=== PATIENT | female | born 1945 | race Caucasian/White ===

== ENCOUNTER 2024-10-02 13:18 | Outpatient (AMB) | payer MEDICARE, SELFPAY ==
--- OUTSIDE RECORDS SUMMARY | 2024-10-02 13:26 | XMS_ITS | Clinical Summary ---
Author Organization [facility] Address [address] [place] [address] Care Team Providers Care Administrative Nursing Supervisor Name Role Phone None, Provider Primary Care Provider Unavailabl e Allergies Active Allergy Reactions Criticality Noted Date Comments Guaifenesin 11/30/2016 Sertraline Diarrhea 11/30/2016 Sulfa (Sulfonamide Antibiotics) 11/11 Medications aspirin chewable 81 mg tablet Take 81 mg by mouth daily. Active betamethasone dipropionate (DIPROLENE) 0.05 % cream Apply topically 2 times daily. Active buPROPion (WELLBUTRIN) 75 mg tablet Take 75 mg by mouth 2 times daily. Active chlorthalidone (HYGROTON) 25 mg tablet Take 25 mg by mouth daily. Active lisinopril (PRINIVIL, ZESTRIL) 40 mg tablet Take 40 mg by mouth daily. Active lovastatin (MEVACOR) 20 mg tablet Take 40 mg by mouth at bedtime. Active Surgical History Surgery Date Site/Laterality Comments BREAST BIOPSY Left Benign Medical History Medical History Date Comments Hypertension Psychiatric problem Major depres sive disorder Hyperlipidemia 11/01/2006 Diverticulitis Cataract Allergic rhinitis Rotator cuff disorder Family History Medical History Relation Comments Stroke Father Heart Attack Mother Heart Attack Paternal Grandfather Relation Status Comments Father Mother Paternal Grandfather Social History Tobacco Use Types Packs/Day Years Used Date Smoking Tobacco: Former Cigarettes Q uit: 1982 Smokeless Tobacco: Never Alcohol Use Standard Drinks/Week Comments Yes 3 (1 standard drink = 0.6 oz pur e alcohol) Interpersonal Safety Answer Date Record ed Physically Hurt Never 10/13/2019 Verbally Threaten Not on file 10/13/2019 Comments Unknown Sex and Gender Information Value Date Recorded Sex Assigned at Not on file Legal Sex Female 8:47 EDT Gender Identity Not on file Sexual Orientation Not on file Obstetrics History Last Filed Vital Signs Vital Sign Reading Time Taken Comments Blood Pressure 118/62 11/30/2016 0907 EDT Pulse 76 11/30/2016 0907 EDT Temperature 36.8 C (98.2 F) 11/30/2016 1005 EDT Respiratory Rate 18 11/30/2016 0907 EDT Oxygen Saturation - - Inhaled Oxygen Concentration - - Weight - - Height - - Body Mass Index - - Plan of Treatment Health Maintenance Due Date Last Done Comments Fall Risk Screening 12/06/2008 RSV Immunization ( o r 60+ Years) (1 - 1-dose 75+ series) 12/06/2018 COVID-19 Vaccine (2023- season) 2023 Care Teams Administrative Nursing Supervisor Relationship Specialty Start Date End Date None, Provider PCP - General 11/30/16
--- OUTSIDE RECORDS SUMMARY | 2024-10-02 13:26 | XMS_ITS | Encounter Summary ---
Author Organization [facility] Address [address] [facility] [address] [place] [address] Phone Care Team Providers Care Basketball Scout Name Role Phone Adenike Lainez NP Primary Care Provider Farrah Hemphill NOTE TAKER Unavailable + Encounter Details Date Type Department Care Team (Late st Contact Info) Description 09/23/2018 Procedure Pass OR Admitting Dept - [facility] Department [address] [place] [address] Social History Tobacco Use Types Packs/Day Years Used Date Smoking Tobacco: Former Cigarettes Q uit: 1983 Smokeless Tobacco: Never Alcohol Use Standard Drinks/Week Comments Yes 0 (1 standard drink = 0.6 oz pur e alcohol) Comments Unknown Sex and Gender Information Value Date Recorded Sex Assigned at Female 06/23/2020 9:19 AM EDT Legal Sex Female 10:09 PM EDT Gender Identity Female 06/23/2020 9:19 AM EDT Sexual Orientation Not on file documented as of this encounter Plan of Treatment Upcoming Encounters Date Type Department Care Team (Late st Contact Info) Description 12/08/2024 11:00 AM EDT Appointment [facility] [address] [place] [address] Farrah Hemphill, LORE [address] [place], [place] [phone] documented as of this encounter Visit Diagnoses Not on filedocumented in this encounter Care Teams Basketball Scout Relationship Specialty Start Date End Date Adenike Lainez NP [address] [place] [address] [email or web address] PCP - General Family Medicine 03/29/18 Farrah Hemphill CNP [address] [place] [address] Nurse Practitioner 07/14/24 documented as of this encounter Additional Source Comments The information contained in this document represents components of the legal health record. It is not the complete legal health record.[facility]
--- OUTSIDE RECORDS SUMMARY | 2024-10-02 13:26 | XMS_ITS | Encounter Summary ---
Author Organization [employer] Address [address] [place] [address] 7 [place] [address] Care Team Providers Care Ross Carrier Driver Name Role Phone Brandie Hicks PA-C Primary Care Provider Farrah Ryan BUSINESS SUPERVISOR Primary Care Provider [phone] Reason for Visit * Reason Onset Date Comments New PCP 09/04/2023 Encounter Details Date Type Department Care Team (Late st Contact Info) Description 09/04/[address] [address] Brandie Hicks PA-C New PCP Social History Tobacco Use Types Packs/Day Years Used Date Smoking Tobacco: Former Cigarettes Smokeless Tobacco: Never Alcohol Use Standard Drinks/Week Comments Yes 0 (1 standard drink = 0.6 oz pure alcohol) 2 glasses of wine a week, 1 glass of licquor a week Depression Answer Date Recorded Patient Health Questionnaire-9 Score 1 07/03/2022 Housing Stability Answer Date Recorded What is your housing situation today? I have francis garsia 08/02/[address] you li ve. Do you have problems with any of the following? None of the above 08/02/2023 Food Insecurity Answer Date Recorded Within the past 12 months, y ou worried that your food would run out before you got money to buy more: Never True 08/02/2023 Within the past 12 months,th e food you bought just didn't last and you didn't have enough money to get more: Never True Transportation Answer Date Recorded In the past 12 months, has l ack of transportation kept you from medical appts, meetings, work or from getting things needed for daily living? No 08/02/2023 Utilities Answer Date Recorded In the past 12 months, has t he electric, gas, oil or water company threatened to shut off services in your home? No 08/02/2023 Depression Answer Date Recorded Patient Health Questionnaire-2 Score 0 08/02/2023 Comments Unknown Sex and Gender Information Value Date Recorded Sex Assigned at Female 04/06/2022 11:42 AM EST Legal Sex Female 5:35 PM EDT Gender Identity Female 04/06/2022 11:42 AM EST Sexual Orientation Choose not to disclose 2022 11:42 AM EST documented as of this encounter Miscellaneous Notes * Telephone Encounter - Nayla Quijano - 09/04/2023 2:55 PM EDT I believe Dr. Harman will be seeing patients at [facility] and may be a better fit as MEGGAN is only there one day a week. * Telephone Encounter - Mariam Santos - 09/04/2023 1:59 PM EDT Patient LMOM on 08/30/2023 asking to speak to someone about changing PCP due to current PCP leavingin a few months. Patient has requested a MD and not a ACETONE BUTTON PASTER for a new PCP, as of right now only Kerry Bneson seems mike taking in new patients as an MD. Would this patient be a good fit or should we recommend another PCP? documented in this encounter Plan of Treatment Not on file documented as of this encounter Visit Diagnoses Not on filedocumented in this encounter Additional Health Concerns Assessment Noted Time PHQ-9 Depression Total Score: 1 07/04/19 12:08 PM EDT documented as of this encounter Care Teams Ross Carrier Driver Relationship Specialty Start Date End Date Brandie Hicks PA-C PCP - General Family Medicine 06/12/22 06/03/24 Farrah Hemphill FNP [address] [place] [address] PCP - General Family Medicine 06/04/24 documented as of this encounter
--- NOTE | 2024-10-02 13:29 | A.OFFVIS_ITS ---
Vital Signs 10/02/24 13:30 Height 5 ft 5.5 in Weight 127 lb BMI 20.8 Intake Visit Reasons: WEB PRODUCTION ASSISTANT/PCP referral for claudication Intake Note: WEB PRODUCTION ASSISTANT/ PCP referral for PAD w/ bilateral LE cramps w/ ambulation of any distance x 6+ months Business Services Clerk Required: No Accompanied by: Self / Same As Patient Allergies mussels Allergy (Severe, Verified 10/02/24 13:36) Gastrointestinal Upset Sulfa (Sulfonamide Antibiotics) Allergy (Intermediate, Verified 10/02/24 13:36) Hives guaifenesin (From Mucinex) Adverse Reaction (Mild, Verified 10/02/24 13:36) Dizziness avacodo Allergy (Severe, Uncoded 10/02/24 13:36) Gastrointestinal Upset salmon Allergy (Severe, Uncoded 10/02/24 13:36) Gastrointestinal Upset trout Allergy (Severe, Uncoded 10/02/24 13:36) Gastrointestinal Upset HPI HPI WEB PRODUCTION ASSISTANT/PCP referral for claudication: Details: Very pleasant 78-year-old female was referred to us for evaluation regarding peripheral vascular disease. This all began as a workup by her insurance company. She had an outpatient mobile scan which was concerning for moderate vascular disease. Unfortunately I was unable to get a copy of that report but was subsequently referred for vascular evaluation. Upon discussion with her she quit smoking nearly 45 years ago and prior to that she was smoking a proximally a pack a day. She is a nondiabetic. Interestingly of note she is on 3 blood pressure medications and appears to be reasonably controlled at the current time. She also had undergone MRCP for what appears to be a gallbladder polyp. Upon discussion with her she reports that she is able to easily walk a mi. she has occasional cramps which is not specifically related to her ambulation status. It often occurs at night while at rest as well. She now presents to us for vascular evaluation. Review of Systems Const All systems reviewed & are unremarkable except as noted in HPI and below Reports no additional complaints ENT Reports Normal hearing present Card Denies chest pain, Denies chest pain at rest, Denies chest pain with activity and Denies pedal edema Resp Denies cough GI Denies abdominal pain Musc Denies abnormal gait, Denies muscle cramps and Denies radiating pain into limb Skin/Breast Denies skin ulcer and Denies wounds Neuro Reports Normal hearing present and Denies abnormal gait Psych Reports no additional complaints Physical Exam Vital Signs: BMI result Body Mass Index 20.8 Const General: cooperative, healthy appearing and comfortable Orientation/consciousness: oriented to person, oriented to place and oriented to time HEENT Head: Yes normal to inspection Neck Neck: Yes normal visual inspection Carotids: no bruits Chest Chest palpation & inspection: normal inspection of the chest Resp Effort & Inspection: normal respiratory effort and able to speak in complete sentences Auscultation: clear to auscultation bilaterally, no crackles, no rales, no rhonchi and no wheezes Cardio Other: Left side palpable dorsalis pedis pulse Rate: regular rate Rhythm: regular rhythm Heart sounds: S1 normal heart sound present and S2 normal heart sound present Bruits: no carotid bruits Peripheral pulses: Peripheral pulses 2+ throughout GI Inspection: Yes normal to inspection Skin Wounds: no wounds Hair: normal Neuro General: oriented to person, oriented to place and oriented to time Cranial nerves: Yes CN's II-XII intact bilaterally and Yes Normal hearing present Cognition (Neuro): normal cognition Motor exam (neuro): 5/5 motor strength present throughout Extrem Other: venous exam: No significant superficial varicosities or spider telangiectasias, minimal edema General: No clubbing, No cyanosis and No edema Psych Appearance: grossly normal Mental Status: mental status grossly normal Speech and movement: Normal speech and movement present Assessment & Plan Assessment & Plan (1) PAD (peripheral artery disease): Code(s): I73.9 - Peripheral vascular disease, unspecified Category: Medical Plan: In short patient has an element of PA D. She is a stable claudication who can easily ambulate a mi. I did review the pathophysiology of peripheral vascular disease with the patient. In addition we did discuss routine conservative measures including a healthy diet and the importance of exercise and ambulation. We did discuss risk factor modification. I did discuss with her the importance of getting a baseline study. I do not think at the current time any intervention would be indicated. The patient will follow up with us after noninvasive testing. Thank you for allowing us to participate in this patient's care. If there are any questions or concerns please do not hesitate to contact us. (2) Renal artery stenosis: Code(s): I70.1 - Atherosclerosis of renal artery Category: Medical Plan: Of concern is the patient is on 3 antihypertensive medications. Due to her history of atherosclerotic disease I have also taken the liberty of ordering a renal artery ultrasound. We will obtain both results prior to her follow-up with us. Thank you once again for allowing us to assist in her care. If there are any questions or concerns please do not hesitate to contact us. Plan The patient had an opportunity to ask questions regarding the treatment plan. All questions were answered. Imaging studies, laboratory studies and physical exam results were discussed and reviewed in detail. No major barriers to understanding were identified. The patient expressed understanding and agreement with the above treatment plan. The patient is aware they should contact our office by phone for worsening of the current condition or the appearance of new symptoms. Thank you for allowing me to participate in the vascular care of this patient. If you have any questions or concerns regarding the treatment for the above condition please do not hesitate to contact me. The office telephone contact is [phone]. This note is constructed using voice recognition software. While every effort has been made to ensure accuracy, tack driller errors may have been included. Thank you for allowing me to participate in the care of your patient. Yours sincerely, Lewis Mathias MD, FACS, R.P.V.I. Orders: Orders US arterial duplex LE BI Today I73.9 - Peripheral vascular disease, unspecified US renal doppler Today I73.9 - Peripheral vascular disease, unspecified Coding Level of Care Code New Pt Level 4 (98003) Complex EM visit Add On G2211 Diagnoses PAD (peripheral artery disease) I73.9 Renal artery stenosis I70.1
[2024-10-02 13:30] VITALS: BMI 20.8
== END 2024-10-02 13:57 | disposition home or self-care (01) ==
LOC: HO.HVS 13:18
PROVIDERS: PCP Nurse Practitioner Family; Visit Provider Surgery Vascular Surgery
DX: I73.9 Peripheral vascular disease, unspecified (principal); I70.1 Atherosclerosis of renal artery
CPT/HCPCS: 99204; G2211

== ENCOUNTER → 2024-10-02 13:18 | Outpatient (BNVA) | payer MEDICARE, SELFPAY | PROVIDERS: PCP Nurse Practitioner Family; Visit Provider Surgery Vascular Surgery | DX: I70.1 Atherosclerosis of renal artery (principal); I73.9 Peripheral vascular disease, unspecified | CPT/HCPCS: 99202 ==

== ENCOUNTER 2024-12-30 08:20 | Outpatient (REF) | payer MEDICARE, SELFPAY ==
--- NOTE | ~2024-12-30 | US_ITS ---
EXAMINATION: US NONINVASIVE ASSESSMENT OF THE bilateral LOWER EXTREMITY WITH ARTERIAL DUPLEX AND ANKLE BRACHIAL INDICES (ABIS) CLINICAL INFORMATION: Peripheral vascular disease COMPARISON: None available. TECHNIQUE: Duplex Doppler techniques with waveform analysis and measurement of velocities in the common femoral, profunda femoris, superficial femoral, popliteal and tibial arteries were performed. In addition, ankle pulse volume recordings, ankle pressure measurements and ankle brachial indices were obtained of the bilateral lower extremity arterial system. The study was performed only at rest. FINDINGS: NONINVASIVE ASSESSMENT OF THE ARTERIES OF BILATERAL LOWER EXTREMITIES WITH ABIs: RIGHT LEG: Ankle-brachial index: 0.89 Ankle PVR: Slightly dampened LEFT LEG: Ankle-brachial index: 1.05 Left ankle PVR: Normal THANIA Reference: 0.9 - 1.4 = normal - no significant arterial disease 0.7 - 0.89 = mild peripheral arterial disease 0.51 - 0.69 = moderate peripheral arterial disease 0.50 = severe peripheral arterial disease RIGHT LOWER EXTREMITY DUPLEX ULTRASOUND: Common femoral artery: 92 cm/s. Diastolic flow reversal: Biphasic Profunda femoris artery: 73 cm/s. Diastolic flow reversal: Biphasic Superficial femoral artery (proximal): 83 cm/s. Diastolic flow reversal: Biphasic Superficial femoral artery (mid): 104 cm/s. Diastolic flow reversal: Biphasic Superficial femoral artery (distal): 93 cm/s. 1.5 cm segment with acoustic shadowing and borderline velocity change. Diastolic flow reversal: Biphasic Popliteal artery: 49 cm/s. 1.5 cm segment with acoustic shadowing. Diastolic flow reversal: Biphasic Posterior tibial artery: Occluded proximally. Diastolic flow reversal: Monophasic flow distally. Patent tibioperoneal trunk, peroneal and anterior tibial arteries are patent dorsalis pedis artery in the foot. Biphasic flow. . LOWER EXTREMITY DUPLEX ULTRASOUND: Common femoral artery: 117 cm/s. Diastolic flow reversal: Biphasic Profunda femoris artery: 120 cm/s. Diastolic flow reversal: Biphasic Superficial femoral artery (proximal): 129 cm/s. Diastolic flow reversal: Biphasic Superficial femoral artery (mid): 178 cm/s. 2 cm segment with acoustic shadowing. Diastolic flow reversal: Biphasic Superficial femoral artery (distal): 125 cm/s. 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 The left anterior tibial and peroneal arteries and dorsalis pedis artery appear patent with biphasic flow . US/US arterial duplex BI w/ THANIA IMPRESSION: Right: Mild atherosclerotic disease. 1.5 cm segment with acoustic shadowing in the mid right superficial femoral and popliteal arteries. The right proximal posterior tibial artery may be occluded. The right THANIA is 0.89. Left: Mild atherosclerotic disease. 2 cm segment with acoustic shadowing in the left mid SFA. Diseased proximal posterior tibial artery. The left THANIA is 1.05 Electronically signed by: Yeimy Romano MD 12/30/2024 12:06 PM EDT
--- NOTE | ~2024-12-30 | US_ITS ---
EXAMINATION: US RETROPERITONEAL LIMITED (RENAL ONLY) ULTRASOUND RENAL DOPPLER. CLINICAL INFORMATION: I 73.9. Peripheral vascular disease. Hypertension.. COMPARISON: None available. TECHNIQUE: Real-time ultrasound kidneys using grayscale and color Doppler technique. Spectral Doppler analysis of the main renal arteries, the abdominal aorta at the origin of the main renal arteries and segmental resistive indicis of the kidneys and the upper, mid and lower poles. FINDINGS: RIGHT KIDNEY: 9 x 5 x 5 cm (SAG x AP x TRV). Volume: 117 cc. Normal echotexture. Normal renal cortical thickness. No hydronephrosis. There are multiple, well-defined, exophytic anechoic lesions throughout the renal parenchyma, the largest measures 1.4 cm. LEFT KIDNEY: 11 x 5 x 6 cm (SAG x AP x TRV). Volume: 201 cc. Normal echotexture. Renal cortical thickness is normal. No hydronephrosis. There are multiple, well-defined, anechoic lesions with different sizes, the largest measures 5.5 cm in the midportion and upper pole junction. SPECTRAL DOPPLER ANALYSIS: Right Kidney: -Peak systolic velocity in the proximal right renal artery = 116 cm/s. Normal waveforms. -Peak systolic velocity in the mid right renal artery = 118 cm/s. Normal waveforms. -Peak systolic velocity in the distal right renal artery = 120 cm/s. Normal waveforms. -Patent right renal vein.. -Upper pole interlobar artery resistive index of 0.84. -Midpole interlobar artery resistive index of 0.79. -Lower pole interlobar artery resistive index of 0.77. RAR right = 1.2 Left Kidney: -Peak systolic velocity in the proximal left renal artery = 132 cm/s. Normal waveforms. -Peak systolic velocity in the mid left renal artery = 173 cm/s. Normal waveforms. -Peak systolic velocity in the distal left renal artery = 88 cm/s. Normal waveforms. -Patent left renal vein. -Upper pole interlobar artery resistive index of 1.0. -Mid pole interlobar artery resistive index of 0.72. -lower pole interlobar artery resistive index of 0.77. RAR left = 1.7 Aorta: -Peak systolic velocity = 100 cm/s. US/US renal doppler IMPRESSION: Bilateral renal cysts. No hydronephrosis in either kidney. No hemodynamically significant stenosis by ultrasound criteria at either main renal artery. Elevated/abnormal resistive indicis, both kidneys suggesting medical renal disease.. Electronically signed by: Balta Romero MD 12/30/2024 11:14 AM EDT RP
--- OUTSIDE RECORDS SUMMARY | 2024-12-30 08:28 | XMS_ITS | Encounter Summary ---
Author Organization [facility] Address [address] [facility] [address] [place] [address] Phone Care Team Providers Care Lead Consultant Name Role Phone Adenike Lainez NP Primary Care Provider Farrah Hemphill NARCOTICS AND/OR VICE DETECTIVE Unavailable + Farrah Hemphill CNP Primary Care Prov ider Encounter Details Date Type Department Care Team (Late st Contact Info) Description 05/06/2018 Ancillary Orders [facility] Orthopedics & Sports Medicine [address] [place] [address] Marcella Womack MD [address] [place] [address] Orthopedics & Sports Medicine, [facility] [place], [place] [phone] [email or web address] Social History Tobacco Use Types Packs/Day Years [...] Care Team (Late st Contact Info) Description 01/16/2025 10:00 AM EST Office Visit [facility] [address] [place], [place] [phone] Marcella Womack MD [address] [facility] [place], [place] [phone] [email or web address] documented as of this encounter Visit Diagnoses Not on filedocumented in this encounter Care Teams Lead Consultant Relationship Specialty Start Date End Date Adenike Lainez NP [address] [place] [address] [email or web address] PCP - General Family Medicine 03/29/18 10/26/24 Farrah Hemphill CNP [address] [place] [address] PCP - General Nurse Practitioner 10/27/24 Farrah Hemphill CNP [address] [place] [address] Nurse Practitioner 07/14/24 documented as of this encounter Additional Source Comments The information contained in this document represents components of the legal health record. It is not the complete legal health record.[facility]
--- OUTSIDE RECORDS SUMMARY | 2024-12-30 08:28 | XMS_ITS | Encounter Summary ---
Author Organization [employer] Address [address] [place] [address] 7 [place] [address] Care Team Providers Care Laborer Shipyard Name Role Phone Brandie Hicks PA-C Primary Care Provider Farrah Ryan Primary Care Provider [phone] Encounter Details Date Type Department Care Team (Latest Contact Info) Description 01/06/2020 Abstract [facility]VERSION[facility] Dental, Provider, DDS Social History Tobacco Use Types Packs/Day Years Used Date Smoking Tobacco: Never Assessed Comments Unknown Sex and Gender Information Value Date Recorded Sex Assigned at Female 04/06/2022 11:42 AM EST Legal Sex Female 5:35 PM EDT Gender Identity Female 04/06/2022 11:42 AM EST Sexual Orientation Choose not to disclose 2022 11:42 AM EST documented as of this encounter Plan of Treatment Not on file documented as of this encounter Visit Diagnoses Not on filedocumented in this encounter Care Teams Laborer Shipyard Relationship Specialty Start Date End Date Brandie Hicks PA-C PCP - General Family Medicine 06/12/22 06/03/24 Farrah Hemphill FNP [address] [place] [address] PCP - General Family Medicine 06/04/24 documented as of this encounter
--- OUTSIDE RECORDS SUMMARY | 2024-12-30 08:28 | XMS_ITS | Encounter Summary ---
Author Organization [employer] Address [address] [place] [address] 7 [place] [address] Care Team Providers Care Housing Installer Name Role Phone Brandie Hicks PA-C Primary Care Provider Farrah Ryan Primary Care Provider [phone] Encounter Details Date Type Department Care Team (Latest Contact Info) Description 02/18/2019 Abstract [facility] CONVERSION[facility] Dental, Provider, DDS Social [...] on filedocumented in this encounter Care Teams Housing Installer Relationship Specialty Start Date End Date Brandie Hicks PA-C PCP - General Family Medicine 06/12/22 06/03/24 Farrah Hemphill FNP [address] [place] [address] PCP - General Family Medicine 06/04/24 documented as of this encounter
--- OUTSIDE RECORDS SUMMARY | 2024-12-30 08:28 | XMS_ITS | Encounter Summary ---
Author Organization [facility] Address [address] [facility] [address] [place] [address] Phone Care Team Providers Care Agricultural Extension Agent Name Role Phone Adenike Lainze NP Primary Care Provider Farrah Hemphill COSTING ANALYST Unavailable + Farrah Hemphill CNP Primary Care Prov ider Encounter Details Date Type Department Care Team (Late st Contact Info) Description 09/23/2018 Procedure Pass OR Admitting Dept - Virtual Department [address] [place] [address] Social History Tobacco Use Types Packs/Day Years [...] Description 01/16/2025 10:00 AM EST Office Visit [facility] Orthopedics & Sports Medicine [address] [place] [address] Marcella Goldsmith MD [address] [place] [address] [facility] [place] [address] [email or web address] documented as of this encounter Visit Diagnoses Not on filedocumented in this encounter Care Teams Agricultural Extension Agent Relationship Specialty Start Date End Date Adenike Lainez NP [address] [place] [address] [email or web address] PCP - General Family Medicine 03/29/18 10/26/24 Farrah Hemphill CNP [address] [place] [address] PCP - General Nurse Practitioner 10/27/24 Farrah Hemphill CNP [address] [place] [address] Nurse Practitioner 07/14/24 documented as of this encounter Additional Source Comments The information contained in this document represents components of the legal health record. It is not the complete legal health record.[facility]
--- OUTSIDE RECORDS SUMMARY | 2024-12-30 08:28 | XMS_ITS | Encounter Summary ---
Author Organization [facility] Address [address] [facility] [address] [place] [address] Phone Care Team Providers Care Color Matcher Name Role Phone Adenike Lainez NP Primary Care Provider Farrah Hemphill REEFER ENGINEER Unavailable + Farrah Hemphill REEFER ENGINEER Primary Care Prov ider Encounter Details Date Type Department Care Team (Late st Contact Info) Description 07/21/2024 Procedure Pass [facility], [address] [address] Social History Tobacco Use Types Packs/Day Years Used Date Smoking Tobacco: Former Cigarettes Q uit: 1983 Smokeless Tobacco: Never Alcohol Use Standard Drinks/Week Comments Yes 0 (1 standard drink = 0.6 oz pur e alcohol) 2 glasses of wine per week Education Answer Date Recorded Are you interested in more education? Not on alejandro e 07/07/2022 Are you concerned about learning? Not on file 07/07/2022 No 07/07/2022 No 07/07/2022 Digital Access Answer Date Recorded No 08/05/2022 No 08/05/2022 Reliable internet access at home? Not on file 08/05/2022 Device with a working camera? Not on file Intimate Partner Violence Answer Date R ecorded Are you denied basic needs s uch as food, clothing, or medical care? No 07/14/2022 In the past 12 months have y ou been in a relationship with a person who hurts, threatens, or tries to control you? No 07/14/2022 Are you denied basic needs s uch as food, clothing, or medical care? No 07/14/2022 In the past 12 months have y ou been in a relationship with a person who hurts, threatens, or tries to control you? No 07/14/2022 Comments No Sex and Gender Information Value Date Recorded Sex Assigned at Female 06/23/2020 9:19 AM EDT Legal Sex Female 10:09 PM EDT Gender Identity Female 06/23/2020 9:19 AM EDT Sexual Orientation Not on file documented as of this encounter Plan of Treatment Upcoming Encounters Date Type Department Care Team (Late st Contact Info) Description 01/16/2025 10:00 AM EST Office Visit [facility] Orthopedics & Sports Medicine [address] [place] [address] Marcella Womack MD [address] [place] [address] Orthopedics & Sports Medicine, [facility] [place] [address] [email or web address] documented as of this encounter Visit Diagnoses Not on filedocumented in this encounter Care Teams Color Matcher Relationship Specialty Start Date End Date Adenike Lainez NP [address] [place] [address] [email or web address] PCP - General Family Medicine 03/29/18 10/26/24 Farrah Hemphill CNP [address] [place] [address] PCP - General Nurse Practitioner 10/27/24 Farrah Hemphill CNP [address] [place] [address] Nurse Practitioner 07/14/24 documented as of this encounter Additional Source Comments The information contained in this document represents components of the legal health record. It is not the complete legal health record.[facility]
--- OUTSIDE RECORDS SUMMARY | 2024-12-30 08:28 | XMS_ITS | Encounter Summary ---
Author Organization [employer] Address [address] [place] [address] 7 [place] [address] Care Team Providers Care Elementary School Social Worker Name Role Phone Brandie Hicks PA-C Primary Care Provider Farrah Ryan Primary Care Provider [phone] Encounter Details Date Type Department Care Team (Latest Contact Info) Description 08/22/2018 Abstract [facility] CONVERSIONS Dental, Provider, DDS Social [...] on filedocumented in this encounter Care Teams Elementary School Social Worker Relationship Specialty Start Date End Date Brandie Hicks PA-C PCP - General Family Medicine 06/12/22 06/03/24 Farrah Hemphill FNP [address] [place] [address] PCP - General Family Medicine 06/04/24 documented as of this encounter
--- OUTSIDE RECORDS SUMMARY | 2024-12-30 08:28 | XMS_ITS | Encounter Summary ---
Author Organization [facility] Address [address] [facility] [address] [place] [address] Phone Care Team Providers Care Sustainment Logistics Analyst Name Role Phone Adenike Lainez NP Primary Care Provider Farrah Hemphill CIGAR MAKING SUPERVISOR Unavailable + Farrah Hemphill CNP Primary Care Prov ider Encounter Details Date Type Department Care Team (Latest Contact Info) Description 09/05/2024 Transcribe Orders Virtual Department [address] [place] [address] Farrah Hemphill CNP [address] [place], [place] [phone] Complex renal cyst (Primary Dx) Social History Tobacco Use Types Packs/Day Years [...] Description 01/16/2025 10:00 AM EST Office Visit [facility] Orthopedics & Sports Medicine [address] [place] [phone] Marcella Womack MD [address] [place] [address] Orthopedics & Sports Medicine, [place] [address] [email or web address] documented as of this encounter Results * US Kidneys (12/08/2024 12:06 PM EDT) Anatomical Region Laterality Modality Abdomen, Kidney Ultrasound 12/08/2024 12:1 3 PM EDT Impressions 12/08/2024 12:24 PM EDT 1. No hydronephrosis. 2. Bilateral renal cysts. 3. Other hypoechoic renal lesions bilaterally are too small to characterize, but are similar to prior study Narrative 12/08/2024 12:24 PM EDT US KIDNEYS Referring clinician's provided indication for this examination in Epic: Outside Radiology Order; complex renal cyst TECHNIQUE: Kidney Ultrasound. COMPARISON: Prior studies including MRI 07/29/2024 and prior renal ultrasound 07/01/2024 FINDINGS: Right Kidney: Size: 9.5 cm No hydronephrosis. Right mid kidney renal cyst (anechoic with increased through transmission) measures 1.5 cm. Other hypoechoic renal lesions throughout the right kidney are below 1 cm in size and are too small to accurately characterize. Left Kidney: Size: 10.2 cm No hydronephrosis. Upper pole simple cyst (anechoic, increased through transmission) measures 5.5 cm. Other subcentimeter hypoechoic renal lesions are too small to characterize. Bladder: Underdistended and therefore not well evaluated. Procedure Note Bijan Horvath MD - 12/08/2024 US KIDNEYS Referring clinician's provided indication for this examination in Epic:Outside Radiology Order; complex renal cyst TECHNIQUE: Kidney Ultrasound. COMPARISON: Prior studies including MRI 07/29/2024 and prior renalultrasound 07/01/2024 FINDINGS: Right Kidney: Size: 9.5 cm No hydronephrosis. Right mid kidney renal cyst (anechoic with increased through transmission)measures 1.5 cm. Other hypoechoic renal lesions throughout the right kidney are below 1 cmin size and are too small to accurately characterize. Left Kidney: Size: 10.2 cm No hydronephrosis. Upper pole simple cyst (anechoic, increased through transmission) measures5.5 cm. Other subcentimeter hypoechoic renal lesions are too small tocharacterize. Bladder: Underdistended and therefore not well evaluated. IMPRESSION: 1. No hydronephrosis. 2. Bilateral renal cysts. 3. 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 It is not the complete legal health record.[facility]
--- OUTSIDE RECORDS SUMMARY | 2024-12-30 08:28 | XMS_ITS | Encounter Summary ---
Author Organization [facility] Address [address] [employer] [facility] [address] [place] [phone] Phone Care Team Providers Care Tooling Supervisor Name Role Phone Adenike Lainez NP Primary Care Provider Farrah Hemphill APPARATUS LINEMAN Unavailable + Farrah Hemphill CNP Primary Care Prov ider Encounter Details Date Type Department Care Team (Latest Contact Info) Description 05/06/2018 Ancillary Orders [address] [phone] Marcella Womack MD [address] [place] [address] Orthopedics & Sports Medicine, [place], [place] [phone] [email or web address] Osteoarthritis of left hip, unspecified osteoarthritis type Social History Tobacco Use Types Packs/Day Years [...] Description 01/16/2025 10:00 AM EST Office Visit [facility] Orthopedics & Sports Medicine [address] [place] [address] Marcella Womack MD [address] [place] [address] Orthopedics & Sports Medicine, [place] [address] Pending Results Name Type Priority Associated Diagnoses Date /Time FL Guidance Needle Placement Non-Spine Imaging Routine Osteoarthritis of left hip, unspecified osteoarthritis type 05/07/2018 9:08 AM EST Scheduled Orders Name Type Priority Associated Diagnoses Orde r Schedule FL Guidance Needle Placement Non-Spine Imaging Routine Osteoarthritis of left hip, unspecified osteoarthritis type Expected: 05/06/2018, Expires: 08/04/2019 documented as of this encounter Visit Diagnoses Diagnosis Osteoarthritis of left hip, unspecified osteoarthritis type documented in this encounter Care Teams Tooling Supervisor Relationship Specialty Start Date End Date Adenike Lainez NP [address] [place] [address] [email or web address] PCP - General Family Medicine 03/29/18 10/26/24 Farrah Hemphill CNP [address] [place] [address] PCP - General Nurse Practitioner 10/27/24 Farrah Hemphill CNP [address] [place] [address] Nurse Practitioner 07/14/24 documented as of this encounter Additional Source Comments The information contained in this document represents components of the legal health record. It is not the complete legal health record.[facility]
--- OUTSIDE RECORDS SUMMARY | 2024-12-30 08:29 | XMS_ITS | Encounter Summary ---
Author Organization [facility] Address [address] [facility] [address] [place] [address] Phone Care Team Providers Care Fuse Spooler Name Role Phone Adenike Lainez NP Primary Care Provider Farrah Hemphill RESTAURANT BUSSER Unavailable + Farrah Hemphill CNP Primary Care Prov ider Reason for Referral * Hospital - Outpatient - Closed Specialty Diagnoses / Procedures Referred By Kriss godoy Referred To Contact Radiology Diagnoses Claudication Procedures US Lower Extremity Arteries (THANIA) Physio Complete Bilat Farrah Hemphill CNP Phone: tel: fax: Referral ID Status Reason Start Date Expiration Date Visits Re quested Visits Authorized [id number] Closed 06/06/2024 06/06/2025 1 1 Encounter Details Date Type Department Care Team (Latest Contact Info) Description 06/06/2024 Transcribe Orders Virtual Department [address] [place] [address] Farrah Hemphill CNP [address] [place], [place] [phone] Claudication (Primary Dx); Pancreatic abnormality; Acute pain of left shoulder Social History Tobacco Use Types Packs/Day Years [...] Description 01/16/2025 10:00 AM EST Office Visit [facility] Orthopedics & Sports Medicine [address] [place] [phone] Marcella Womack MD [address] [place] [address] Orthopedics & Sports Medicine, [facility] [place] [address] documented as of this encounter Results * US Lower Extremity Arteries (THANIA) Physio Complete Bilat (07/08/2024 10:24 AM EDT) Anatomical Region Laterality Modality Ultrasound 07/08/2024 10:2 7 AM EDT Narrative 07/08/2024 12:18 PM EDT US LOWER EXTREMITY ARTERIES (THANIA) PHYSIO COMPLETE BILAT Referring clinician's provided indication for this examination in [facility]: Outside Radiology Order; claudication TECHNIQUE: Bilateral lower extremity non-invasive arterial evaluation was performed utilizing ankle brachial indices, segmental systolic pressures and pulse volume recordings. COMPARISON: None FINDINGS: Exam Quality: Technically adequate exam demonstrates: AT REST: Segmental blood pressures measured (in mmHg): BRACHIAL SYSTOLIC PRESSURES: Right: 110 Left: 103 Brachial Pressure Gradient:No significant brachial systolic pressure gradient is noted. RIGHT LOWER EXTREMITY: Segmental Pressures: Thigh: 157, 135 Calf: 93 Posterior Tibial: 64 Dorsalis Pedis: 66 THANIA: HOME HEALTH CARE PHYSICIAN Ankle-Brachial Index: .58 DPA Ankle-Brachial Index: .60 THANIA interpretation: Moderate arterial insufficiency. Digit: Toe Pressure: 59 Toe/Brachial Index (TBI): .54 TBI interpretation: suggests arterial insufficiency. LEFT LOWER EXTREMITY: Segmental Pressures: Thigh: 140, 131 Calf: 125 Posterior Tibial: 100 Dorsalis Pedis: 103 THANIA: HOME HEALTH CARE PHYSICIAN Ankle-Brachial Index: .91 DPA Ankle-Brachial Index: .84 THANIA interpretation: Mild arterial insufficiency. Digit: Toe Pressure: 103 Toe/Brachial Index (TBI): .94 TBI interpretation: Normal IMPRESSIONS: Right lower extremity: Moderate arterial insufficiency localized to the infrapopliteal segment. Toe pressure (50-60 mm Hg) is borderline adequate for wound healing. Left lower extremity: Mild arterial insufficiency localized to the infrapopliteal segment. Toe pressure (>60 mm Hg) is likely adequate for wound healing. Procedure Note Cayla Castro MD - 07/08/2024 US LOWER EXTREMITY ARTERIES (THANIA) PHYSIO COMPLETE BILCORRY Referring clinician's provided indication for this examination in [facility]:Outside Radiology Order; claudication TECHNIQUE: Bilateral lower extremity non-invasive arterial evaluation wasperformed utilizing ankle brachial indices, segmental systolic pressuresand pulse volume recordings. COMPARISON: None FINDINGS: Exam Quality: Technically adequate exam demonstrates: AT REST: Segmental blood pressures measured (in mmHg): BRACHIAL SYSTOLIC PRESSURES: Right: 110 Left: 103 Brachial Pressure Gradient:No significant brachial systolic pressuregradient is noted. RIGHT LOWER EXTREMITY: Segmental Pressures: Thigh: 157, 135 Calf: 93 Posterior Tibial: 64 Dorsalis Pedis: 66 THANIA: HOME HEALTH CARE PHYSICIAN Ankle-Brachial Index: .58 DPA Ankle-Brachial Index: .60 THANIA interpretation: Moderate arterial insufficiency. Digit: Toe Pressure: 59 Toe/Brachial Index (TBI): .54 TBI interpretation: suggests arterial insufficiency. LEFT LOWER EXTREMITY: Segmental Pressures: Thigh: 140, 131 Calf: 125 Posterior Tibial: 100 Dorsalis Pedis: 103 THANIA: HOME HEALTH CARE PHYSICIAN Ankle-Brachial Index: .91 DPA Ankle-Brachial Index: .84 THANIA interpretation: Mild arterial insufficiency. Digit: Toe Pressure: 103 Toe/Brachial Index (TBI): .94 TBI interpretation: Normal IMPRESSIONS: Right lower extremity: Moderate arterial insufficiency localized to theinfrapopliteal segment. Toe pressure (50-60 mm Hg) is borderline adequatefor wound healing. Left lower extremity: Mild arterial insufficiency localized to theinfrapopliteal segment. Toe pressure (>60 mm Hg) is likely adequate forwound healing. Farrah Hemphill RESTAURANT BUSSER CV US VASCULAR Fi nal Result * US ABDOMEN LIMITED RIGHT UPPER QUADRANT (07/01/2024 9:45 AM EDT) MGB IMG RECOMMENDATION COMMENT Differential: cyst 1.4 cm abdominal; Rule Out: right interpolar kidney solid component [facility] Anatomical Region Laterality Modality Abdomen Ultrasound 07/01/2024 12:0 4 PM EDT Impressions 07/01/2024 12:11 PM EDT Similar 8 mm sessile gallbladder polyp. Likely cyst right interpolar kidney 1.4 cm, with some low-level echoes; contrast enhanced abdominal MRI recommended to exclude solid component. Doing MRCP could be additionally helpful. Follow-up recommendation was communicated and documented using a closed loop communication system. Narrative 07/01/2024 12:11 PM EDT US ABDOMEN LIMITED RIGHT UPPER QUADRANT Referring clinician's provided indication for this examination in [facility]: Outside Radiology Order; left shoulder pain. Review of the Electronic Medical Record reveals an additional history of: Pancreatic abnormality. TECHNIQUE: US Abdominal limited right upper quadrant. COMPARISON: US ABDOMEN LIMITED RIGHT UPPER QUADRANT ; US ABDOMEN LIMITED RIGHT UPPER QUADRANT ; US ABDOMEN LIMITED RIGHT UPPER QUADRANT FINDINGS: Liver: Echogenic 2 x 4 x 4 mm focus, not enlarging. Main Portal Vein: Patent with normal direction of flow. Gallbladder: 8 mm sessile polyp is similar. Lu's Sign: Negative. Biliary: Normal. No intrahepatic or extrahepatic biliary ductal dilatation. The common bile duct measures 3 mm. Limited visualization the pancreas is unremarkable. 1.4 cm likely cyst right interpolar kidney, also subcentimeter cyst. Procedure Note Atiya Horvath MD - 07/01/2024 US ABDOMEN LIMITED RIGHT UPPER QUADRANT Referring clinician's provided indication for this examination in [facility]:Outside Radiology Order; left shoulder pain. Review of the ElectronicMedical Record reveals an additional history of: Pancreaticabnormality. TECHNIQUE: US Abdominal limited right upper quadrant. COMPARISON: US ABDOMEN LIMITED RIGHT UPPER QUADRANT ; USABDOMEN LIMITED RIGHT UPPER QUADRANT ; US ABDOMEN LIMITED RIGHTUPPER QUADRANT FINDINGS: Liver: Echogenic 2 x 4 x 4 mm focus, not enlarging. Main Portal Vein: Patent with normal direction of flow. Gallbladder: 8 mm sessile polyp is similar. Lu's Sign: Negative. Biliary: Normal. No intrahepatic or extrahepatic biliary ductaldilatation. The common bile duct measures 3 mm. Limited visualization the pancreas is unremarkable. 1.4 cm likely cyst right interpolar kidney, also subcentimeter cyst. IMPRESSION: Similar 8 mm sessile gallbladder polyp. Likely cyst right interpolar kidney 1.4 cm, with some low-level echoes;contrast enhanced abdominal MRI recommended to exclude solid component.Doing MRCP could be additionally helpful. Follow-up recommendation was communicated and documented using a closedloop communication system. Farrah Hemphill RESTAURANT BUSSER IMG US ABDOMEN Fi nal Result * XR SHOULDER 2 VIEWS (LEFT) (07/01/2024 8:53 AM EDT) Anatomical Region Laterality Modality Shoulder Left Computed Radiogr aphy 07/02/2024 12:3 1 AM EDT Impressions 07/02/2024 12:32 AM EDT Moderate to severe glenohumeral osteoarthritis. Superior translation of the humeral head, suspicious for rotator cuff tear. Suspected calcific rotator cuff tendinopathy. Narrative 07/02/2024 12:32 AM EDT XR SHOULDER 2 OR MORE VIEWS (LEFT) REQUESTED INDICATION: Outside Radiology Order; left shoulder pain COMPARISON: None FINDINGS: BONE: Bones demineralized. No acute fracture or dislocation. GLENOHUMERAL JOINT: Moderate to severe joint space narrowing with subchondral sclerosis and bony proliferative change. Superior translation of the humeral head. Soft tissue mineralization in the region of the rotator cuff attachment. ACROMIOCLAVICULAR JOINT: Mild joint space narrowing with bony spurring. OTHER: Partially visualized cervical spine degenerative change. Aortic arch calcification. Procedure Note Heber Beal MD - 07/02/2024 XR SHOULDER 2 OR MORE VIEWS (LEFT) REQUESTED INDICATION: Outside Radiology Order; left shoulder pain COMPARISON: None FINDINGS: BONE: Bones demineralized. No acute fracture or dislocation. GLENOHUMERAL JOINT: Moderate to severe joint space narrowing withsubchondral sclerosis and bony proliferative change. Superior translationof the humeral head. Soft tissue mineralization in the region of therotator cuff attachment. ACROMIOCLAVICULAR JOINT: Mild joint space narrowing with bony spurring. OTHER: Partially visualized cervical spine degenerative change. Aorticarch calcification. IMPRESSION: Moderate to severe glenohumeral osteoarthritis. Superior translation of the humeral head, suspicious for rotator cufftear. Suspected calcific rotator cuff tendinopathy. Farrah Hank Hemphill CNP IMG XR UPPER EXTRE MITY Final Result documented in this encounter Visit Diagnoses Diagnosis Claudication- Primary Unspecified peripheral vascular disease Pancreatic abnormality Acute pain of left shoulder Pancreatic abnormality Acute pain of left shoulder Claudication Unspecified peripheral vascular disease documented in this encounter Care Teams Fuse Spooler Relationship Specialty Start Date End Date Adenike Lainez NP [address] [place] [address] [email or web address] PCP - General Family Medicine 03/29/18 10/26/24 Farrah Hemphill CNP [address] [place] [address] PCP - General Nurse Practitioner 10/27/24 Farrah Hemphill CNP [address] [place] [address] Nurse Practitioner 07/14/24 documented as of this encounter Additional Source Comments The information contained in this document represents components of the legal health record. It is not the complete legal health record.[facility]
--- OUTSIDE RECORDS SUMMARY | 2024-12-30 08:29 | XMS_ITS | Encounter Summary ---
Author Organization [facility] Address [address] [facility] [address] [place] [address] Phone Care Team Providers Care Elevator Starter Name Role Phone Adenike Lainez NP Primary Care Provider Farrah Hemphill MANUFACTURER'S REPRESENTATIVE Unavailable + Farrah Hemphill CNP Primary Care Prov ider Encounter Details Date Type Department Care Team (Latest Contact Info) Description 06/15/2023 Transcribe Orders Virtual Department [address] [place] [address] Brandie Hicks PA [address] [place] [address]. [place] [address] [email or web address] Gallbladder polyp (Primary Dx) Social History Tobacco Use Types [...] Description 01/16/2025 10:00 AM EST Office Visit [facility] Orthopedics & Sports Medicine [address] [place] [phone] Marcella Womack MD [address] [place] [address] Orthopedics & Sports Medicine, [place] [address] [email or web address] documented as of this encounter Results * US ABDOMEN LIMITED RIGHT UPPER QUADRANT (07/05/2023 9:45 AM EDT) Anatomical Region Laterality Modality Abdomen Ultrasound 07/05/2023 11:4 6 AM EDT Impressions 07/06/2023 5:04 PM EDT Similar 10 mm echogenic gallbladder polyp. Follow-up sonography in 12 months is recommended per current guidelines Narrative 07/06/2023 5:04 PM EDT US ABDOMEN LIMITED RIGHT UPPER QUADRANT Referring clinician's provided indication for this examination in Epic: Outside Radiology Order; gallbladder polyp TECHNIQUE: US Abdominal limited right upper quadrant. COMPARISON: Sonography 02/01/2023 and 08/01 FINDINGS: Liver: Similar subcentimeter hyperechoic focus at the right hepatic lobe. No additional focal hepatic lesions. Main Portal Vein: Patent with normal direction of flow. Gallbladder: There is a similar 10 mm echogenic polypoid lesion projecting into the gallbladder lumen. Lu's Sign: Negative. Biliary: No intrahepatic or extrahepatic biliary ductal dilatation. The common bile duct measures 4 mm. Right Kidney: No stones or hydronephrosis. Procedure Note Lisha Messer MD - 07/06/2023 US ABDOMEN LIMITED RIGHT UPPER QUADRANT Referring clinician's provided indication for this examination in Epic:Outside Radiology Order; gallbladder polyp TECHNIQUE: US Abdominal limited right upper quadrant. COMPARISON: Sonography 02/01/2023 and 08/01 FINDINGS: Liver: Similar subcentimeter hyperechoic focus at the right hepatic lobe.No additional focal hepatic lesions. Main Portal Vein: Patent with normal direction of flow. Gallbladder: There is a similar 10 mm echogenic polypoid lesion projectinginto the gallbladder lumen. Lu's Sign: Negative. Biliary: No intrahepatic or extrahepatic biliary ductal dilatation. The common bile duct measures 4 mm. Right Kidney: No stones or hydronephrosis. IMPRESSION: Similar 10 mm echogenic gallbladder polyp. Follow-up sonography in 12months is recommended per current guidelines us Brandie SAVAGE IMG US ABDOMEN Final Result documented in this encounter Visit Diagnoses Diagnosis Gallbladder polyp- Primary Cholesterolosis of gallbladder Gallbladder polyp Cholesterolosis of gallbladder documented in this encounter Care Teams Elevator Starter Relationship Specialty Start Date End Date Adenike Lainez NP [address] [place] [address] [email or web address] PCP - General Family Medicine 03/29/18 10/26/24 Farrah Hemphill CNP [address] [place] [address] PCP - General Nurse Practitioner 10/27/24 Farrah Hemphill CNP [address] [place] [address] Nurse Practitioner 07/14/24 documented as of this encounter Additional Source Comments The information contained in this document represents components of the legal health record. It is not the complete legal health record.[facility]
--- OUTSIDE RECORDS SUMMARY | 2024-12-30 08:29 | XMS_ITS | Encounter Summary ---
Author Organization [facility] Address [address] [facility] [address] [place] [address] Phone Care Team Providers Care Pressure Testing Technician Name Role Phone Adenike Lainez NP Primary Care Provider Farrah Hemphill CNP Unavailable + Farrah Hemphill CNP Primary Care Prov ider Reason for Referral * Outpatient Procedure - Closed Specialty Diagnoses / Procedures Referred By Kriss godoy Referred To Contact Radiology Diagnoses Other specified symptoms and signs involving the circulatory and respiratory systems Procedures US Carotid Duplex Complete (Bilateral) Adenike Lainez NP [address] [place] [address] Phone: tel: fax: [email or web address] Referral ID Status Reason Start Date Expiration Date Visits Re quested Visits Authorized [id number] Closed 05/08/2022 05/08/2023 1 1 Encounter Details Date Type Department Care Team (Late st Contact Info) Description 05/08/2022 Transcribe Orders Virtual Department [address] [place] [address] Adenike Lainez NP [address] [place], [place] [id number] [email or web address] Other specified symptoms and signs involving the circulatory and respiratory systems (Primary Dx) Social History Tobacco Use Types Packs/Day Years Used Date Smoking Tobacco: Former Cigarettes Q uit: 1982 Smokeless Tobacco: Never Alcohol Use Standard Drinks/Week Comments Yes 0 (1 standard drink = 0.6 oz pur e alcohol) 2 glasses of wine per week Comments No Sex and Gender Information Value Date Recorded Sex Assigned at Female 06/23/2020 9:19 AM EDT Legal Sex Female 10:09 PM EDT Gender Identity Female 06/23/2020 9:19 AM EDT Sexual Orientation Not on file documented as of this encounter Plan of Treatment Upcoming Encounters Date Type Department Care Team (Late st Contact Info) Description 01/16/2025 10:00 AM EST Office Visit [facility] Orthopedics & Sports Medicine [address] [place] [address] Marcella Womack MD [address] [place] [address] Orthopedics & Sports Medicine, [facility] [place] [address] documented as of this encounter Results * US Carotid Duplex Complete (Bilateral) (05/30/2022 1:36 PM EDT) Anatomical Region Laterality Modality Heart, Thoracic Vasculature, Neck Ultrasound 05/30/2022 4:56 PM EDT Impressions 05/30/2022 5:28 PM EDT 1. Moderate (50-69%) stenosis of the right internal carotid artery. 2. Mild (less than 50%) stenosis of the left internal carotid artery 3. Elevated vertebral artery velocities bilaterally may reflect more proximal stenosis. Consider correlation with CTA. Narrative 05/30/2022 5:28 PM EDT US CAROTID DUPLEX COMPLETE (BILATERAL) History: Carotid bruit TECHNIQUE: Ultrasound Carotid Duplex with color flow Doppler and spectral waveform Doppler. Arterial inflow was assessed. COMPARISON: There is no prior study available for comparison FINDINGS: Right Common carotid artery: Proximal: No significant stenosis. Mid: No significant stenosis. Distal: There is a small amount of calcified and noncalcified atheroma. Internal carotid artery: Proximal: There is a moderate to large amount of calcified and noncalcified atheroma. Mid: No significant stenosis. Distal: No significant stenosis. External carotid artery: There is a small amount of calcified atheroma at the proximal ECA. Vertebral artery: Antegrade. Left Common carotid artery: Proximal: There is a small amount of calcified and noncalcified atheroma. Mid: There is a small amount of calcified and noncalcified atheroma. Distal: There is a small amount of calcified and noncalcified atheroma. Internal carotid artery: Proximal: There is a moderate to large amount of calcified and noncalcified atheroma. Mid: No significant stenosis. Distal: No significant stenosis. External carotid artery: There is a small amount of calcified atheroma at the proximal ECA. Vertebral artery: Antegrade. Right Peak Systolic Velocities: Proximal CCA: 80 cm/s Distal CCA: 76 cm/s Proximal ICA: 177 cm/s Mid ICA: 103 cm/s Distal ICA: 96 cm/s ECA: 140 cm/s Vertebral: 115 cm/s Right End Diastolic Velocities: Proximal CCA: 17 cm/s Distal CCA: 21 cm/s Proximal ICA: 42.8 cm/s Mid ICA: 27 cm/s Distal ICA: 29 cm/s ECA: 13 cm/s Vertebral: 22 cm/s Left Peak Systolic Velocities: Proximal CCA: 86 cm/s Distal CCA: 74 cm/s Proximal ICA: 111 cm/s Mid ICA: 88 cm/s Distal ICA: 60 cm/s ECA: 114 cm/s Vertebral: 141 cm/s Left End Diastolic Velocities: Proximal CCA: 16 cm/s Distal CCA: 17 cm/s Proximal ICA: 22.4 cm/s Mid ICA: 25 cm/s Distal ICA: 18 cm/s ECA: 12 cm/s Vertebral: 22 cm/s Abbreviations: CCA = Common Carotid Artery. ICA = Internal Carotid Artery. ECA = External Carotid Artery. Vert = Vertebral Artery. ICA/CCA ratio = maximal ICA PSV divided by the maximal CCA PSV. Procedure Note Lisha Messer MD - 05/30/2022 US CAROTID DUPLEX COMPLETE (BILATERAL) History: Carotid bruit TECHNIQUE: Ultrasound Carotid Duplex with color flow Doppler and spectralwaveform Doppler. Arterial inflow was assessed. COMPARISON: There is no prior study available for comparison FINDINGS: Right Common carotid artery: Proximal: No significant stenosis. Mid: No significant stenosis. Distal: There is a small amount of calcified and noncalcifiedatheroma. Internal carotid artery: Proximal: There is a moderate to large amount of calcified andnoncalcified atheroma. Mid: No significant stenosis. Distal: No significant stenosis. External carotid artery: There is a small amount of calcified atheroma atthe proximal ECA. Vertebral artery: Antegrade. Left Common carotid artery: Proximal: There is a small amount of calcified and noncalcifiedatheroma. Mid: There is a small amount of calcified and noncalcifiedatheroma. Distal: There is a small amount of calcified and noncalcifiedatheroma. Internal carotid artery: Proximal: There is a moderate to large amount of calcified andnoncalcified atheroma. Mid: No significant stenosis. Distal: No significant stenosis. External carotid artery: There is a small amount of calcified atheroma atthe proximal ECA. Vertebral artery: Antegrade. Right Peak Systolic Velocities: Proximal CCA: 80 cm/s Distal CCA: 76 cm/s Proximal ICA: 177 cm/s Mid ICA: 103 cm/s Distal ICA: 96 cm/s ECA: 140 cm/s Vertebral: 115 cm/s Right End Diastolic Velocities: Proximal CCA: 17 cm/s Distal CCA: 21 cm/s Proximal ICA: 42.8 cm/s Mid ICA: 27 cm/s Distal ICA: 29 cm/s ECA: 13 cm/s Vertebral: 22 cm/s Left Peak Systolic Velocities: Proximal CCA: 86 cm/s Distal CCA: 74 cm/s Proximal ICA: 111 cm/s Mid ICA: 88 cm/s Distal ICA: 60 cm/s ECA: 114 cm/s Vertebral: 141 cm/s Left End Diastolic Velocities: Proximal CCA: 16 cm/s Distal CCA: 17 cm/s Proximal ICA: 22.4 cm/s Mid ICA: 25 cm/s Distal ICA: 18 cm/s ECA: 12 cm/s Vertebral: 22 cm/s Abbreviations: CCA = Common Carotid Artery. ICA = Internal Carotid Artery. ECA =External Carotid Artery. Vert = Vertebral Artery. ICA/CCA ratio = maximalICA PSV divided by the maximal CCA PSV. IMPRESSION: 1. Moderate (50-69%) stenosis of the right internal carotid artery. 2. Mild (less than 50%) stenosis of the left internal carotid artery 3. Elevated vertebral artery velocities bilaterally may reflect moreproximal stenosis. Consider correlation with CTA. us Adenike Lainez NP CV US NEUROVASCULAR Fin al Result documented in this encounter Visit Diagnoses Diagnosis Other specified symptoms and signs involving the circulatory and respiratory systems- Primary Other specified symptoms and signs involving the circulatory and respiratory systems documented in this encounter Care Teams Pressure Testing Technician Relationship Specialty Start Date End Date Adenike Lainez, MARIXA [address] [place] [id number] [email or web address] PCP - General Family Medicine 03/29/18 10/26/24 Farrah Hemphill CNP [address] [place] [address] PCP - General Nurse Practitioner 10/27/24 Farrah Hemphill CNP [address] [place] [address] Nurse Practitioner 07/14/24 documented as of this encounter Additional Source Comments The information contained in this document represents components of the legal health record. It is not the complete legal health record.[facility]
--- OUTSIDE RECORDS SUMMARY | 2024-12-30 08:29 | XMS_ITS | Encounter Summary ---
Author Organization [facility] Address [address] [place] [address] 7 [place] [address] Care Team Providers Care Loan Administrator Name Role Phone Brandie Hicks PA-C Primary Care Provider Farrah Ryan Primary Care Provider [phone] [phone] Encounter Details Date Type Department Care Team (Latest Contact Info) Description 07/15/2020 Abstract [facility] CONVERSIONS Dental, Provider, DDS Social [...] on filedocumented in this encounter Care Teams Loan Administrator Relationship Specialty Start Date End Date Brandie Hicks PA-C PCP - General Family Medicine 06/12/22 06/03/24 Farrah Hemphill FNP [address] [place] [address] PCP - General Family Medicine 06/04/24 documented as of this encounter
--- OUTSIDE RECORDS SUMMARY | 2024-12-30 08:29 | XMS_ITS | Encounter Summary ---
Author Organization [facility] Address [address] [facility] [address] [place] [address] Phone Care Team Providers Care Salesperson Surgical Appliances Name Role Phone Adenike Lainez NP Primary Care Provider Farrah Hemphill SPD MANAGER Unavailable + Farrah Hemphill CNP Primary Care Prov ider Encounter Details Date Type Department Care Team (Latest Contact Info) Description 09/18/2023 Transcribe Orders Virtual Department [address] [place] [address] Joy Hicks PA [address] [place] [address]. [place] [address] [email or web address] Other specified menopausal and perimenopausal disorders (Primary Dx) Social History Tobacco Use Types [...] Description 01/16/2025 10:00 AM EST Office Visit [facility] Orthopedics & Sports Medicine [address] [place] [address] Marcella Womack MD [address] [place] [address] Orthopedics & Sports Medicine, [facility] [place] [address] [email or web address] documented as of this encounter Results * BD DXA SPINE AND HIP WITH FOREARM (07/17/2024 1:37 PM EDT) Anatomical Region Laterality Modality Bone Density Bone Density 07/17/2024 1:23 PM EDT Impressions 07/18/2024 1:31 PM EDT Interpretation: Osteopenia. Narrative 07/18/2024 1:31 PM EDT Referred By: JOY HICKS Indications: Postmenopausal Scanner: YaBattle A with serial# of [id number] located at [facility] Bone Density Scan (DXA) 07/17/24 Details of prior DXA scans are available by clicking View Full Report BMD T- Z- Skeletal Site gm/cm2 score score BMD Change Since Prior Scan ------ ----- ----- PA Spine (L1 L2) 1.067 0.80 3.30 0.029 (2.8%)* since 08/13/2008 Total Hip (Right) 0.653 -2.40 -0.30 -0.171 (-20.8%)* since 08/13/2008 Femoral Neck (Right) 0.612 -2.10 0.20 -0.162 (-20.9%)* since 08/13/2008 1/3 Radius (Left) 0.571 -1.90 1.30 N/A ------ ----- ----- * Denotes significant change when >= 0.022 g/cm2 for the spine, 0.027 g/cm2 for the total hip, 0.029 g/cm2 for the femoral neck, 0.023 g/cm2 for the forearm (1/3 radius). Interpretation: Osteopenia. Technical Quality: The PA Spine scan was of marginal quality because of scoliosis (which can decrease or increase BMD). Because only two vertebrae are measurable, interpret PA spine results with caution; serial changes may be more variable than usual. FRAX: Based on FRAX(r) 3.6 ([place] White female), this patient's likelihood of hip fracture is 4.5% and major osteoporotic fracture is 14.3% over the next 10 years. The patient reported no risks of fracture. Reviewed By: Yeimy Wood MD on 07/18/2024 13:31:29 Additional Information: -World Health Organization criteria classify adults based on lowest T-score at PA spine, hip or forearm: Normal (T-score >= -1.0), Osteopenia (T-score between -1 and -2.5), or Osteoporosis (T-score <= -2.5). At [facility], T-scores are compared to peak bone density of a young white gender matched reference population. - For premenopausal women and men under the age of 50, Z-scores (comparison to age, gender, and ethnicity matched reference population) are used: Above expected range for age (Z-score >= 2.0), Within expected range of age (Z-score 1.9 to -1.9), or Below expected range for age (Z-score <= -2.0). - The Bone Health and Osteoporosis Foundation recommends that treatment be considered in men aged more than 50 years and in postmenopausal women with ANY of the following: Prior hip or vertebral fractures; T-score of <= -2.5 at the PA spine or hip; or 10 year fracture probability by FRAX of >= 3% for the hip or >= 20% for major osteoporotic fracture. - The FRAX algorithm (https://www.ashutosh.ac.uk/FRAX/tool.aspx) is designed to predict 10-year fracture risk in treatment-naive adults between the ages of 40 and 90. It is not intended to be used in those receiving pharmacologic osteoporosis treatment. - The TBS is derived from the texture of the DXA spine image and has been shown to be related to bone microarchitecture and fracture risk. This data provides information independent of BMD value. It adds to fracture risk assessment with a FRAX adjusted for TBS score. If your patient had a TBS and qualified for a FRAX score, the reported FRAX score has been adjusted for TBS. TBS Score Interpretation 1.350 and greater Normal bone microarchitecture 1.200 to 1.350 Partially degraded bone microarchitecture 1.200 and less Degraded bone microarchitecture - Including race/ethnicity in the generation of T- or Z-scores or in the FRAX calculation is complicated, and currently undergoing active review to ensure that we can give patients the best information on their risk of fracture. - Some prior studies may not be compatible with our comparison software. - Click on View Full Report to see subsequent pages with images and prior bone density results. Procedure Note Yeimy Wood MD - 07/18/2024 Referred By: JOY HICKS Indications: Postmenopausal Scanner: YaBattle A with serial# of [id number] located at [facility] Bone Density Scan (DXA) 07/17/24 Details of prior DXA scans are available by clicking View Full Report BMD T- Z- Skeletal Site gm/cm2 score score BMD Change Since Prior Scan ------ ----- PA Spine (L1 L2) 1.067 0.80 3.30 0.029 (2.8%)* since08/13/2008 Total Hip (Right) 0.653 -2.40 -0.30 -0.171 (-20.8%)* since08/13/2008 Femoral Neck (Right) 0.612 -2.10 0.20 -0.162 (-20.9%)* since08/13/2008 1/3 Radius (Left) 0.571 -1.90 1.30 N/A ------ ----- * Denotes significant change when >= 0.022 g/cm2 for the spine, 0.027g/cm2 for the total hip, 0.029 g/cm2 for the femoral neck, 0.023 g/cm2 for the forearm (1/3 radius). Interpretation: Osteopenia. Technical Quality: The PA Spine scan was of marginal quality because of scoliosis (which can decrease or increase BMD). Because only twovertebrae are measurable, interpret PA spine results with caution; serial changesmay be more variable than usual. FRAX: Based on FRAX(r) 3.6 (U.S. White female), this patient's likelihoodof hip fracture is 4.5% and major osteoporotic fracture is 14.3% over thenext 10 years. The patient reported no risks of fracture. Reviewed By: Yeimy Wood MD on 07/18/2024 13:31:29 Additional Information: -World Health Organization criteria classify adults based on lowestT-score at PA spine, hip or forearm: Normal (T-score >= -1.0), Osteopenia (T-score between -1 and -2.5), or Osteoporosis (T-score <= -2.5). At [facility], T-scores are compared to peak bone density of a young white gender matched reference population. - For premenopausal women and men under the age of 50, Z-scores(comparison to age, gender, and ethnicity matched reference population) are used:Above expected range for age (Z-score >= 2.0), Within expected range of age (Z-score 1.9 to -1.9), or Below expected range for age (Z-score <= -2.0). - The Bone Health and Osteoporosis Foundation recommends that treatment be considered in men aged more than 50 years and in postmenopausal women with ANY of the following: Prior hip or vertebral fractures; T-score of <= -2.5 at the PA spine or hip; or 10 year fracture probability by FRAX of >= 3%for the hip or >= 20% for major osteoporotic fracture. - The FRAX algorithm (https://www.ashutosh.ac.uk/FRAX/tool.aspx) is designed to predict 10-year fracture risk in treatment-naive adultsbetween the ages of 40 and 90. It is not intended to be used in those receiving pharmacologic osteoporosis treatment. - The TBS is derived from the texture of the DXA spine image and has been shown to be related to bone microarchitecture and fracture risk. This data provides information independent of BMD value. It adds to fracture risk assessment with a FRAX adjusted for TBS score. If your patient had a TBSand qualified for a FRAX score, the reported FRAX score has been adjusted for TBS. TBS Score Interpretation 1.350 and greater Normal bone microarchitecture 1.200 to 1.350 Partially degraded bone microarchitecture 1.200 and less Degraded bone microarchitecture - Including race/ethnicity in the generation of T- or Z-scores or in the FRAX calculation is complicated, and currently undergoing active review to ensure that we can give patients the best information on their risk of fracture. - Some prior studies may not be compatible with our comparison software. - Click on View Full Report to see subsequent pages with images andprior bone density results. IMPRESSION: Interpretation: Osteopenia. us Joy SAVAGE IMG BD BONE DENSITY DEXA Annabelle l Result documented in this encounter Visit Diagnoses Diagnosis Other specified menopausal and perimenopausal disorders- Primary Other specified menopausal and perimenopausal disorders documented in this encounter Care Teams Salesperson Surgical Appliances Relationship Specialty Start Date End Date Adenike Lainez NP [address] [place] [address] [email or web address] PCP - General Family Medicine 03/29/18 10/26/24 Farrah Hemphill CNP [address] [place] [address] PCP - General Nurse Practitioner 10/27/24 Farrah Hemphill CNP [address] [place] [address] Nurse Practitioner 07/14/24 documented as of this encounter Additional Source Comments The information contained in this document represents components of the legal health record. It is not the complete legal health record.[facility]
--- OUTSIDE RECORDS SUMMARY | 2024-12-30 08:29 | XMS_ITS | Encounter Summary ---
Author Organization [employer] [facility] Address [address] [place] [address] 7 [place] [address] Care Team Providers Care Route Delivery Driver Name Role Phone Brandie Hicks PA-C Primary Care Provider Farrah Ryan Primary Care Provider [phone] Encounter Details Date Type Department Care Team (Latest Contact Info) Description 10/07/2021 Abstract [facility] CONVERSIONS Dental, Provider, DDS Social [...] on filedocumented in this encounter Care Teams Route Delivery Driver Relationship Specialty Start Date End Date Brandie Hicks PA-C PCP - General Family Medicine 06/12/22 06/03/24 Farrah Hemphill FNP [address] [place] [address] PCP - General Family Medicine 06/04/24 documented as of this encounter
--- OUTSIDE RECORDS SUMMARY | 2024-12-30 08:29 | XMS_ITS | Encounter Summary ---
Author Organization [employer] Address [address] [place] [address] 7t [place] [address] Care Team Providers Care Special Forces Weapons Sergeant Name Role Phone Farrah Hemphill Primary Care Provider [phone] [phone] Encounter Details Date Type Department Care Team (Late st Contact Info) Description 09/03/2024 Orders Only [facility] Information Management [address] [place] [address] Farrah Hemphill FNP [address] [place] [address] Social History Tobacco Use Types Packs/Day Years Used Date Smoking Tobacco: Former Cigarettes 0.5 10 Q uit: 03/12/1979 Passive Smoke Exposure: Past Smokeless Tobacco: Never Comments:Quit when daughter developed asthma Alcohol Use Standard Drinks/Week Comments Yes 3 (1 standard drink = 0.6 oz pure alcohol) 2 glasses of wine a week, 1 glass of licquor a week Alcohol Answer Date Recorded How often do you have a drink containing alcohol ? 0 05/14/2024 How many drinks containing a lcohol do you have on a typical day when you are drinking? 0 05/14/2024 How often do you have six or more drinks on one occasion? 0 05/14/2024 Depression Answer Date Recorded Patient Health Questionnaire-9 Score 2 05/14/2024 Patient Health Questionnaire-9 Score 2 05/14/2024 Last PHQ-9: Questionnaire Data Not on file 0 05/14/2024 Housing Stability Answer Date Recorded What is [...] Date Recorded Patient Health Questionnaire-2 Score 0 05/14/2024 Internet Access Answer Date Recorded Internet Access Q1 Yes 05/14/2024 Internet Access Q2 Not on file 05/14/2024 Comments No Sex and Gender Information Value Date Recorded Sex Assigned at Female 04/06/2022 11:42 AM EST Legal Sex Female 5:35 PM EDT Gender Identity Female 04/06/2022 11:42 AM EST Sexual Orientation Choose not to disclose 2022 11:42 AM EST Occupation Industry Job Start Date Job End Date Not on file Not on file Not on file Not on file documented as of this encounter Plan of Treatment Not on file documented as of this encounter Procedures Procedure Name Priority Date/Time Associated Diagnosis Comments PATHOLOGY REPORT (HISTOPATHOLOGY) Routine 08/20/2024 2:38 PM EDT documented in this encounter Results * Pathology Report (Histopathology) (08/20/2024 2:38 PM EDT) Tissue [facility] PATHOLOGY ORDERABLES Final Result documented in this encounter Visit Diagnoses Not on filedocumented in this encounter Additional Health Concerns Assessment Noted Time PHQ-9 Depression Total Score: 2 05/15/19 25 11:53 AM EST documented as of this encounter Care Teams Special Forces Weapons Sergeant Relationship Specialty Start Date End Date Farrah Hemphill FNP [address] [place] [address] PCP - General Family Medicine 06/04/24 documented as of this encounter
--- OUTSIDE RECORDS SUMMARY | 2024-12-30 08:29 | XMS_ITS | Encounter Summary ---
Author Organization [employer] Address [address] [place] [address] 7 [place] [address] Care Team Providers Care After School Counselor Name Role Phone Brandie Hicks PA-C Primary Care Provider Farrah Ryan WINDOWS SOFTWARE DEVELOPER Primary Care Provider [phone] Reason for Visit * Reason Onset Date Comments New PCP 09/04/2023 Encounter Details Date Type Department Care Team (Late st Contact Info) Description 09/04/[address] [address] Brandie Hicks PA-C New PCP Social History [...] Dr. Harman will be seeing patients at [facility] and may be a better fit as MEGGAN is only there one day a week. * Telephone Encounter - Mariam Santos - 09/04/2023 1:59 PM EDT Patient LMOM on 08/30/2023 asking to speak to someone about changing PCP due to current PCP leavingin a few months. Patient has requested a MD and not a EVAPORATOR HELPER for a new PCP, as of right now only Kerry Benson seems mike taking in new patients as [...] documented as of this encounter Care Teams After School Counselor Relationship Specialty Start Date End Date Brandie Hicks PA-C PCP - General Family Medicine 06/12/22 06/03/24 Farrah Hemphill FNP [address] [place] [address] PCP - General Family Medicine 06/04/24 documented as of this encounter
--- OUTSIDE RECORDS SUMMARY | 2024-12-30 08:29 | XMS_ITS | Encounter Summary ---
Author Organization [facility] Address [address] [facility] [address] [place] [phone] Phone Care Team Providers Care Tv Production Assistant Name Role Phone Adenike Lainez NP Primary Care Provider Farrah Hemphill CNP Unavailable + Farrah Hemphill CNP Primary Care Prov ider Reason for Referral * MRI/CAT Scan - Closed Specialty Diagnoses / Procedures Referred By Kriss godoy Referred To Contact Radiology Diagnoses Renal cyst Procedures MRI Cholangiopancreatography (MRCP) Farrah Hemphill CNP [address] [place] [address] Phone: tel: fax: Referral ID Status Reason Start Date Expiration Date Visits Re quested Visits Authorized [id number] Closed 07/21/2024 07/21/2025 1 1 Encounter Details Date Type Department Care Team (Latest Contact Info) Description 07/21/2024 Transcribe Orders Virtual Department [address] [place] [address] Farrah Hemphill CNP [address] [place], [place] [phone] Renal cyst (Primary Dx) Social History Tobacco Use [...] Description 01/16/2025 10:00 AM EST Office Visit [facility] Orthopedics & Sports Medicine [address] [place] [phone] Marcella Womack MD [address] [place] [address] Orthopedics & Sports Medicine, [facility] [place] [address] documented as of this encounter Results * MRI CHOLANGIOPANCREATOGRAPHY (MRCP) WITH AND WITHOUT CONTRAST (08/06/2024 10:44 AM EDT) [facility] IMG RECOMMENDATION COMMENT Bladder polyp and complex/com plicated right renal cyst. [facility] Anatomical Region Laterality Modality Pancreas, Biliary Magnetic Reson ance 08/08/2024 11:3 9 AM EDT Impressions 08/08/2024 12:24 PM EDT 1. 1.6 cm right interpolar complex/pelvic cyst demonstrating internal septations and layering blood and/or calcium. This corresponds to the previously discussed right interpolar lesion discussed on ultrasound from 07/01/2024. Attention on follow-up ultrasound recommended below. 2. Motion degraded exam demonstrates other bilateral renal cysts, some with thin internal septations and some demonstrating internal hemorrhage/protein. No solid enhancing renal masses identified. 3. Redemonstration 8 mm anterosuperior enhancing gallbladder polyp which has been followed since ultrasound from 07/15/2022. Follow-up right upper quadrant ultrasound 12-14 months is recommended to assess for ongoing stability. 4. Other findings, as above including probable hepatic perfusion abnormality, colonic diverticulosis and probable fibroid uterus. Follow-up recommendations were communicated and documented using a closed loop communication system. Narrative 08/08/2024 12:24 PM EDT MRI CHOLANGIOPANCREATOGRAPHY (MRCP) WITH AND WITHOUT CONTRAST Referring clinician's provided indication for this examination in Epic: Outside Radiology Order; renal cyst TECHNIQUE: Multiplanar MR imaging of the abdomen was performed using T1, T2, fat saturated, and diffusion weighted techniques. 2D and 3D MRCP sequences were performed. Dynamic multiphase imaging was also performed after administration of an intravenous gadolinium contrast agent. COMPARISON: US ABDOMEN LIMITED RIGHT UPPER QUADRANT FINDINGS: The examination is degraded by motion motion. Lower Chest: No effusions. Liver: No significant loss of signal on opposed phase imaging. On arterial phase images there is focal peripheral enhancement within the right lobe measuring 11 mm on image 12 of series 1201 which does not persist on later phase images and is without associated signal abnormality and is likely perfusional. Biliary: No biliary ductal dilatation. The gallbladder demonstrates intrinsic T1 hyperintensity which may be due to high density bile. Along the anterior gallbladder wall there is a T2 hyperintense and T1 hypointense filling defect demonstrating enhancement measuring approximately 8 mm as seen on image 20 of series 1201 consistent with known gallbladder polyp. This has been followed since ultrasound from 07/15/2022. MRCP images are degraded by motion. There is no evidence for choledocholithiasis. Spleen: Upper limits of normal in size at 12.4 cm. There is no focal lesion. Pancreas: No masses or ductal dilatation. There is no pancreatic divisum. Adrenal Glands: No nodules. Kidneys/Ureters: No solid masses or hydronephrosis. There are bilateral renal cysts with the largest in the upper pole measuring 5.4 cm with a thin internal septation. There is a cyst within the mid right kidney measuring 16 mm with a thin internal septation which corresponds to the lesion discussed on recent ultrasound. This demonstrates some layering intrinsically T1 hyperintense signal as on image 51 of series 11 which may be due to layering blood products or calcium. There is a 15 mm intrinsic T1 hyperintense left-sided peripelvic cyst. A 5 mm intrinsic T1 hyperintense focus is seen in the right lower pole. There are multiple other subcentimeter T2 hyperintense lesions which are too small to characterize but likely other small cysts. There are no solid enhancing masses. Bowel: No dilatation or wall thickening. Colonic diverticulosis is noted. Peritoneum/Retroperitoneum: No masses or fluid. Lymph Nodes: No lymphadenopathy. Vessels: No abdominal aortic aneurysm. Bones/Soft Tissues: There is a levoconvex curvature of the lumbar spine with multilevel degenerative change. Small perineural cysts are noted. Large xwfhs-nw-iacr demonstrates a probable fibroid uterus. Procedure Note bAhilash Dukes MD - 08/08/2024 MRI CHOLANGIOPANCREATOGRAPHY (MRCP) WITH AND WITHOUT CONTRAST Referring clinician's provided indication for this examination in Epic:Outside Radiology Order; renal cyst TECHNIQUE: Multiplanar MR imaging of the abdomen was performed using T1,T2, fat saturated, and diffusion weighted techniques. 2D and 3D MRCPsequences were performed. Dynamic multiphase imaging was also performedafter administration of an intravenous gadolinium contrast agent. COMPARISON: US ABDOMEN LIMITED RIGHT UPPER QUADRANT FINDINGS: The examination is degraded by motion motion. Lower Chest: No effusions. Liver: No significant loss of signal on opposed phase imaging. On arterialphase images there is focal peripheral enhancement within the right lobemeasuring 11 mm on image 12 of series 1201 which does not persist on laterphase images and is without associated signal abnormality and is likelyperfusional. Biliary: No biliary ductal dilatation. The gallbladder demonstratesintrinsic T1 hyperintensity which may be due to high density bile. Alongthe anterior gallbladder wall there is a T2 hyperintense and V2behculucfxw filling defect demonstrating enhancement measuringapproximately 8 mm as seen on image 20 of series 1201 consistent withknown gallbladder polyp. This has been followed since ultrasound from07/15/2022. MRCP images are degraded by motion. There is no evidence forcholedocholithiasis. Spleen: Upper limits of normal in size at 12.4 cm. There is no focallesion. Pancreas: No masses or ductal dilatation. There is no pancreaticdivisum. Adrenal Glands: No nodules. Kidneys/Ureters: No solid masses or hydronephrosis. There are bilateralrenal cysts with the largest in the upper pole measuring 5.4 cm with athin internal septation. There is a cyst within the mid right kidneymeasuring 16 mm with a thin internal septation which corresponds to thelesion discussed on recent ultrasound. This demonstrates some layeringintrinsically T1 hyperintense signal as on image 51 of series 11 which maybe due to layering blood products or calcium. There is a 15 mm intrinsicT1 hyperintense left-sided peripelvic cyst. A 5 mm intrinsic I0feaeytlwrosi focus is seen in the right lower pole. There are multipleother subcentimeter T2 hyperintense lesions which are too small tocharacterize but likely other small cysts. There are no solid enhancingmasses. Bowel: No dilatation or wall thickening. Colonic diverticulosis isnoted. Peritoneum/Retroperitoneum: No masses or fluid. Lymph Nodes: No lymphadenopathy. Vessels: No abdominal aortic aneurysm. Bones/Soft Tissues: There is a levoconvex curvature of the lumbar spinewith multilevel degenerative change. Small perineural cysts are noted. Large ejolz-li-kfuy demonstrates a probable fibroid uterus. IMPRESSION: 1. 1.6 cm right interpolar complex/pelvic cyst demonstrating internalseptations and layering blood and/or calcium. This corresponds to thepreviously discussed right interpolar lesion discussed on ultrasound from07/01/2024. Attention on follow-up ultrasound recommended below. 2. Motion degraded exam demonstrates other bilateral renal cysts, somewith thin internal septations and some demonstrating internalhemorrhage/protein. No solid enhancing renal masses identified. 3. Redemonstration 8 mm anterosuperior enhancing gallbladder polyp whichhas been followed since ultrasound from 07/15/2022. Follow-up right upperquadrant ultrasound 12-14 months is recommended to assess for ongoingstability. 4. Other findings, as above including probable hepatic perfusionabnormality, colonic diverticulosis and probable fibroid uterus. Follow-up recommendations were communicated and documented using a closedloop communication system. Farrah Hemphill CNP IMG MR ABDOMEN Fi nal Result documented in this encounter Visit Diagnoses Diagnosis Renal cyst- Primary Unspecified congenital cystic kidney disease Renal cyst Unspecified congenital cystic kidney disease documented in this encounter Care Teams Tv Production Assistant Relationship Specialty Start Date End Date Adenike Lainez NP [address] [place] [phone] [email or web address] PCP - General Family Medicine 03/29/18 10/26/24 Farrah Hemphill CNP [address] [place] [address] PCP - General Nurse Practitioner 10/27/24 Farrah Hemphill CNP [address] [place] [address] Nurse Practitioner 07/14/24 documented as of this encounter Additional Source Comments The information contained in this document represents components of the legal health record. It is not the complete legal health record.[facility]
--- OUTSIDE RECORDS SUMMARY | 2024-12-30 08:29 | XMS_ITS | Encounter Summary ---
Author Organization [facility] Address [address] [employer] [facility] [address] [place] [phone] Phone Care Team Providers Care Brilliandeer Lopper Name Role Phone Adenike Lainez NP Primary Care Provider Farrah Hemphill FINANCIAL SERVICE REPRESENTATIVE Unavailable + Farrah Hemphill CNP Primary Care Prov ider Encounter Details Date Type Department Care Team (Late st Contact Info) Description 07/19/2022 Transcribe Orders [facility] Specimen Processing [address] [place] [address] Tanesha Quarles MD [address] [place] [address] [email or web address] Social History Tobacco Use Types Packs/Day Years [...] on file 07/07/2022 No 07/07/2022 No 07/07/2022 Intimate Partner Violence Answer Date R ecorded [...] Description 01/16/2025 10:00 AM EST Office Visit [facility] Orthopedics & Sports Medicine [address] [place] [phone] Marcella Womack MD [address] [place] [address] Orthopedics & Sports Medicine, [facility] [place] [address] [email or web address] documented as of this encounter Visit Diagnoses Not on filedocumented in this encounter Care Teams Brilliandeer Lopper Relationship Specialty Start Date End Date Adenike Lainez NP [address] [place] [address] [email or web address] PCP - General Family Medicine 03/29/18 10/26/24 Farrah Hemphill CNP [address] [place] [address] PCP - General Nurse Practitioner 10/27/24 Farrah Hemphill CNP [address] [place] [address] Nurse Practitioner 07/14/24 documented as of this encounter Additional Source Comments The information contained in this document represents components of the legal health record. It is not the complete legal health record.[facility]
--- OUTSIDE RECORDS SUMMARY | 2024-12-30 08:29 | XMS_ITS | Clinical Summary ---
Author Organization [facility] Address [address] [place] [address] Care Team Providers Care Shipping Order Clerk Name Role Phone None, Provider PATIENT ACCESS Primary Care Provider Unavaila ble Allergies Active Allergy Reactions Criticality Noted Date [...] COVID-19 Vaccine (2023- season) 2023 Care Teams Shipping Order Clerk Relationship Specialty Start Date End Date None, Provider, PATIENT ACCESS PCP - General 11/30/16
--- OUTSIDE RECORDS SUMMARY | 2024-12-30 08:29 | XMS_ITS | Encounter Summary ---
Author Organization [facility] Address [address] [facility] [address] [place] [phone] Phone Care Team Providers Care Gut Dropper Name Role Phone Adenike Lainez NP Primary Care Provider Farrah Hemphill ANDROID IOS DEVELOPER Unavailable + Farrah Hemphill CNP Primary Care Prov ider Encounter Details Date Type Department Care Team (Latest Contact Info) Description 12/25/2022 Transcribe Orders Virtual Department [address] [place] [address] Brandie Hicks PA [address] [place] [address]. [place] [address] [email or web address] Gallbladder polyp (Primary Dx) [...] Description 01/16/2025 10:00 AM EST Office Visit [facility] Orthopedics & Sports Medicine [address] [place] [address] Marcella Womack MD [address] [place] [address] Orthopedics & Sports Medicine, [place] [address] [email or web address] documented as of this encounter Results * US ABDOMEN LIMITED RIGHT UPPER QUADRANT (01/29/2023 8:22 AM EST) Anatomical Region Laterality Modality Abdomen Ultrasound 01/29/2023 5:17 PM EST Impressions 01/30/2023 6:24 AM EST Unchanged 10 mm gallbladder polyp with a low-risk morphology. RECOMMENDATION: Follow-up right upper quadrant ultrasound in 6 months to reassess the polyp. Idalmis nagel al. Management of Incidentally Detected Gallbladder Polyps: Society of Radiologists in Ultrasound Consensus Conference Recommendations. Radiology. 2021;305(2):277-289. doi: 10.1148/radiol.905209. PMID: [id number]. Narrative 01/30/2023 6:24 AM EST US ABDOMEN LIMITED RIGHT UPPER QUADRANT Referring clinician's provided indication for this examination in [facility]: Outside Radiology Order; gallbladder polyp TECHNIQUE: US Abdominal limited right upper quadrant. COMPARISON: US ABDOMEN LIMITED RIGHT UPPER QUADRANT FINDINGS: Liver: Unchanged subcentimeter hyperechoic focus in the right lobe, less likely a hemangioma. Main Portal Vein: Patent with normal direction of flow. Gallbladder: No significant change in 10 mm echogenic polypoid lesion projecting into the lumen from the nondependent gallbladder wall, when measured in a similar fashion. No adjacent gallbladder wall thickening. No shadowing gallstones. No abnormal gallbladder distention. Lu's Sign: Negative. Biliary: No intrahepatic or extrahepatic biliary ductal dilatation. The common bile duct measures 5 mm. Procedure Note Oscar Kiran MD - 01/30/2023 US ABDOMEN LIMITED RIGHT UPPER QUADRANT Referring clinician's provided indication for this examination in [facility]:Outside Radiology Order; gallbladder polyp TECHNIQUE: US Abdominal limited right upper quadrant. COMPARISON: US ABDOMEN LIMITED RIGHT UPPER QUADRANT FINDINGS: Liver: Unchanged subcentimeter hyperechoic focus in the right lobe, lesslikely a hemangioma. Main Portal Vein: Patent with normal direction of flow. Gallbladder: No significant change in 10 mm echogenic polypoid lesionprojecting into the lumen from the nondependent gallbladder wall, whenmeasured in a similar fashion. No adjacent gallbladder wall thickening. Noshadowing gallstones. No abnormal gallbladder distention. Lu's Sign: Negative. Biliary: No intrahepatic or extrahepatic biliary ductal dilatation. The common bile duct measures 5 mm. IMPRESSION: Unchanged 10 mm gallbladder polyp with a low-risk morphology. RECOMMENDATION: Follow-up right upper quadrant ultrasound in 6 months to reassess thepolyp. Idalmis et al. Management of Incidentally Detected Gallbladder Polyps:Society of Radiologists in Ultrasound Consensus ConferenceRecommendations. Radiology. 2021;305(2):277-289. doi:10.1148/radiol.808963. PMID: [id number]. us Brandie SAVAGE IMG US ABDOMEN Final Result documented in this encounter Visit Diagnoses Diagnosis Gallbladder polyp- Primary Cholesterolosis of gallbladder Gallbladder polyp Cholesterolosis of gallbladder documented in this encounter Care Teams Gut Dropper Relationship Specialty Start Date End Date Adenike Lainez NP [address] [place] [address] [email or web address] PCP - General Family Medicine 03/29/18 10/26/24 Farrah Hemphill CNP [address] [place] [address] PCP - General Nurse Practitioner 10/27/24 Farrah Hemphill CNP [address] [place] [address] Nurse Practitioner 07/14/24 documented as of this encounter Additional Source Comments The information contained in this document represents components of the legal health record. It is not the complete legal health record.[facility]
--- OUTSIDE RECORDS SUMMARY | 2024-12-30 08:29 | XMS_ITS | Clinical Summary ---
Author Organization [facility] Address [address] [place] [phone] Phone Care Team Providers Care Corporate Tax Manager Name Role Phone Farrah Hemphill CNP Unavailable + Farrah Hemphill [facility] Primary Care Prov ider Allergies Active Allergy Reactions Criticality Noted Date Comments Avocado 07/14/2022 Calcitonin (Tunica) Diarrhea 05/24/2009 Other Reaction(s): Nausea, Vomiting Sertraline 07/14/2022 Fish Containing Products 07/14/2022 TROUT AND SALMON Guaifenesin Dizziness 09/23/2018 Mussels Nausea and/or Vomiting High 10/28/2024 Fish Derived Nausea and/or Vomiting 09/10/2018 Sulfa (Sulfonamide Antibiotics) Hives,Itching 03/12/2000 Medications calcium carbonate-vitamin D3 (CALCIUM 500 + D, D3,) 500 mg(1,250mg) -125 unit per tablet Take 1 tablet by mouth daily. Active chlorthalidone (HYGROTON) 25 MG tablet Take 25 mg by mouth daily. Active escitalopram oxalate (LEXAPRO) 20 MG tablet Take 20 mg by mouth nightly at bedtime. Active amLODIPine (NORVASC) 5 MG tablet Take 5 mg by mouth daily. Active atorvastatin (LIPITOR) 20 MG tablet Take 20 mg by mouth daily. 07/25/202 4 Active lisinopril (PRINIVIL,ZESTRIL ) 30 MG tablet Take 30 mg by mouth nightly at bedtime. 5 Active therapeutic multivitamin tablet Take 1 tablet by mouth nightly at bedtime. Active oxyCODONE 5 MG immediate release tablet Take 1 tablet (5 mg total) by mouth every 6 (six) hours as needed for pain (specific location in comments). Partial fill ok 4 tablet Active Active Problems Problem Noted Date Diagnosed Date Cellulitis of hand, right 10/28/2024 Assessment & Plan (10/29/2024 5:57 PM EDT): Cellulitis of the dorsum of the right hand associated with a cat bite. Given Unasyn in the emergency department and this will be continued. She will have as needed pain medications. She is able to actively flex her fingers somewhat. No pain on passive extension. Risk of flexor tenosynovitis is low Showing signs of improvement based on labs and clinical exam Continue antibiotics, with plan to transition to oral 1 to 2 days. Assessment & Plan (10/28/2024 1:27 AM EDT): Cellulitis of the dorsum of the right hand associated with a cat bite. Given Unasyn in the emergency department and this will be continued. She will have as needed pain medications. She is able to actively flex her fingers somewhat. No pain on passive extension. Risk of flexor tenosynovitis is low. Full code status 10/28/2024 Assessment & Plan (10/29/2024 5:57 PM EDT): Patient initially stated that she is a DNR/DNI. Upon further discussion it sounds like she does not want to be kept alive on mechanical ventilators, but does wish to be resuscitated should something happen in the hospital. She will be a full code while she is here. Assessment & Plan (10/28/2024 1:27 AM EDT): Patient initially stated that she is a DNR/DNI. Upon further discussion it sounds like she does not want to be kept alive on mechanical ventilators, but does wish to be resuscitated should something happen in the hospital. She will be a full code while she is here. Gallbladder polyp 07/16/2022 Hyperlipidemia 07/03/2022 07/14/2022 Overview (07/14/2022): Lipid panel 06/2022 tot chol 241, LDL 149. Did not tolerate atorvastatin due to fatigue, so switched to rosuvastatin 07/2022. Assessment & Plan (07/14/2022 8:55 PM EDT): Noted transaminitis Patient's medication was recently stopped due to reported insomnia, no muscle aches Essential hypertension 07/03/2022 Overview (07/14/2022): Rx amlodipine 5 mg, lisinopril 30mg, chlorthalidone 25. Assessment & Plan (10/29/2024 5:57 PM EDT): Elevated blood pressures currently. Possibly in the setting of pain. - Patient is a little dehydrated, hold home chlorthalidone -Patient is normotensive, home amlodipine on hold Assessment & Plan (10/28/2024 1:27 AM EDT): Elevated blood pressures currently. Possibly in the setting of pain. Will continue home medications. Bilateral carotid artery stenosis 07/03/2022 07/14/2022 Overview (07/14/2022): Mod on right, mild on left. UL 05/2022. 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 labs MILANA (acute kidney injury) 07/14/2022 Assessment & Plan (07/15/2022 8:52 AM EDT): Creatinine 2.1 at time of admission. Baseline creatinine in June 0.9. Causes likely prerenal hypoperfusion from fever/infection, hypotension and medications including a diuretic and ANGELITA inhibitor -- Holding BP meds --Continue IV fluids --Await a.m. labs Encounters Date Type Department Care Team Description 12/08/2024 10:46 AM EDT - 12/08/2024 11:59 PM EDT Hospital Encounter [address] [address] Farrah Hemphill, [facility] Discharge Disposition: Home or Self Care 10/27/2024 11:12 PM EDT - 10/30/2024 1:59 PM EDT Hospital Encounter [facility] Telemetry [address] [address] Jayy Lara MD Hampson, Brian S, DO Barbosa-Angles, Brianna R, DO, MPH Discharge Disposition: Home or Self Care from Last 3 Months Social History Tobacco Use Types Packs/Day Years [...] on file 07/07/2022 No 07/07/2022 No 07/07/2022 Food Answer Date Recorded Within the past 6 months we worried whether our food would run out before we got money to buy more. Never True 10/28/2024 Within the past 6 months the food we bought just didn't last and we didn't have enough money to get more. Never True Residential Stability Answer Date Recor ded What is your housing situation today? I have francis garsia 10/28/2024 How many times have you move d in the past 12 months? Zero (I did not move) 10/28/2024 Paying for Meds Answer Date Recorded Do you have trouble paying for medicines? No 10/28/2024 Paying Utility Bills Answer Date Record ed Do you have trouble paying your heating or elect ricity bill? No 10/28/2024 Transportation Answer Date Recorded Has the lack of transportati on kept you from medical appointments or from getting medications? No 10/28/2024 Digital Access Answer Date Recorded No 10/28/2024 Yes 10/28/2024 Do you have reliable internet access at home? Ye s 10/28/2024 Do you have a device (e.g., phone, tablet, computer) with a working camera? Yes 10/28/2024 Intimate Partner Violence Answer Date R ecorded Are you denied basic needs s uch as food, clothing, or medical care? No 10/27/2024 In the past 12 months have y ou been in a relationship with a person who hurts, threatens, or tries to control you? No 10/27/2024 Are you denied basic needs s uch as food, clothing, or medical care? No 10/27/2024 In the past 12 months have y ou been in a relationship with a person who hurts, threatens, or tries to control you? No 10/27/2024 Comments No Sex and Gender Information Value Date Recorded Sex Assigned at Female 06/23/2020 9:19 AM EDT Legal Sex Female 10:09 PM EDT Gender Identity Female 06/23/2020 9:19 AM EDT Sexual Orientation Not on file Last Filed Vital Signs Vital Sign Reading Time Taken Comments Blood Pressure 180/77 10/30/2024 8:23 AM EDT Pulse 65 10/30/2024 8:23 AM EDT Temperature 36 C (96.8 F) 10/30/2024 8:23 AM EDT Respiratory Rate 24 10/30/2024 8:23 AM EDT Oxygen Saturation 94% 10/30/2024 8:23 AM EDT Inhaled Oxygen Concentration - - Weight 58.1 kg (128 lb) 10/27/2024 9:45 PM EDT Height 165.1 cm (5' 5 ) 10/27/2024 9:45 PM EDT Body Mass Index 21.3 10/27/2024 9:45 PM EDT Plan of Treatment Upcoming Encounters Date Type Department Care Team (Late st Contact Info) Description 01/16/2025 10:00 AM EST Office Visit [facility] Orthopedics & Sports Medicine [address] [place] [address] Marcella Womack MD [address] [place] [address] Orthopedics & Sports Medicine, [facility] [place] [address] [email or web address] Health Maintenance Due Date Last Done Comments BLOOD PRESSURE 1945 DEPRESSION SCREENING 1955 LIPID PANEL 01/25/2024 01/24/2023, 05/0 08/2022, 06/12/2022 INFLUENZA VACCINE (#1) 2024 , 11/30/2022, 12/08/2021, Additional history exists COVID-19 VACCINE ( season) 2024 01/10/2024, 12/22/2022, 11/22/2021, Additional history exists CREATININE LEVEL 10/30/2025 10/30/2024, , 10/28/2024, Additional history exists POTASSIUM LEVEL 10/30/2025 10/30/2024, 08, 10/28/2024, Additional history exists Adult Td,Tdap Booster 08/30/2026 08/30/2016 PNEUMOCOCCAL VACCINES (50+ years) Completed 12/31/2014, 06/09/2009 ZOSTER VACCINES Completed 12/03/2017, 08/12/2017 RSV VACCINE Completed 03/21/2023 OSTEOPOROSIS SCREENING INITIAL (ONE-TIME) Completed 07/17/2024, 07/17/2024 HEPATITIS A VACCINES Aged Out No long er eligible based on patient's age to complete this topic HIB VACCINES Aged Out No longer eligi ble based on patient's age to complete this topic MENINGOCOCCAL VACCINES (ACWY) Aged Out No longer eligible based on patient's age to complete this topic MENINGOCOCCAL VACCINES (B) Aged Out N o longer eligible based on patient's age to complete this topic Medical Devices Implanted Type Area Truck Loader Device Identifier Shelf Expiration Date Model / Serial / Lot Hip 36mm 3.0 G7 Acosta Modular Type 1 Tapered Plus - [id number] Implanted:Qty: 1 on 09/23/2018 by Kyrie Lewis MD at [facility] STANDARD Left: Hip [employer] 09/03/2028 [id number] / / [id number] Acetabular Shell 52mm Size E G7 Porous Plasma [employer] Hole - [id number] Implanted:Qty: 1 on 09/23/2018 by Kyrie Lewis MD at [facility] Left: Hip [employer] 04/27/2028 [id number] / / [id number] Screw Bone 6.5x25mm Hip Acetabular Dome G7 Low Profile - [id number] Implanted:Qty: 1 on 09/23/2018 by Kyrie Lewis MD at [facility] Left: Hip [employer] 11/25/2025 [id number] / / [id number] Acetabular Liner 36mm 10deg Size E G7 Polyethylene Arcomxl - [id number] Implanted:Qty: 1 on 09/23/2018 by Kyrie Lewis MD at [facility] Left: Hip [employer] / [employer] 11/20/2022 [id number] / / [id number] Hip Stem [id number] 135deg Echo Bimetric Revision Titanium Porous Reduced Proximalimal Profile Neck - [id number] Implanted:Qty: 1 on 09/23/2018 by Kyrie Lewis MD at [facility] Left: Hip [employer] 04/16/2028 [id number] / / [id number] Procedures Procedure Name Priority Date/Time Associated Diagnosis Comments US KIDNEYS Routine 12/08/2024 12:06 PM EDT Complex renal cyst CBC Routine 10/30/2024 5:23 AM EDT PHOSPHORUS Routine 10/30/2024 5:23 AM EDT MAGNESIUM Routine 10/30/2024 5:23 AM EDT COMPREHENSIVE METABOLIC PANEL Routine 10/30/2024 5:23 AM EDT CBC Routine 10/29/2024 6:09 AM EDT PT-INR Routine 10/29/2024 6:09 AM EDT PHOSPHORUS Routine 10/29/2024 6:09 AM EDT MAGNESIUM Routine 10/29/2024 6:09 AM EDT COMPREHENSIVE METABOLIC PANEL Routine 10/29/2024 6:09 AM EDT SEDIMENTATION RATE (ESR) Routine 10/28/2024 6:38 AM EDT CBC Routine 10/28/2024 6:38 AM EDT PHOSPHORUS Routine 10/28/2024 6:38 AM EDT MAGNESIUM Routine 10/28/2024 6:38 AM EDT BASIC METABOLIC PANEL Routine 10/28/2024 6:38 AM EDT C-REACTIVE PROTEIN Routine 10/28/2024 12 :10 AM EDT MAGNESIUM STAT 10/28/2024 12:10 AM EDT CBC AND DIFFERENTIAL STAT 10/28/2024 12:10 AM EDT BASIC METABOLIC PANEL STAT 10/28/2024 12:10 AM EDT BLOOD CULTURE, ROUTINE STAT 10/28/2024 12:10 AM EDT BD DXA SPINE AND HIP WITH FOREARM Routine 07/17/2024 1:37 PM EDT Other specified menopausal and perimenopausal disorders LIPID PANEL Routine 07/15/2022 6:41 AM EDT from Last 3 Months or Most Recently Relevant to Health Maintenance Results * US Kidneys (12/08/2024 12:06 PM [...] clinician's provided indication for this examination in [facility]: Outside Radiology Order; complex renal cyst TECHNIQUE: [...] clinician's provided indication for this examination in [facility]:Outside Radiology Order; complex renal cyst TECHNIQUE: Kidney [...] but are similar to prior study Farrah Hank Hemphill CARTOGRAPHIC DRAFTER IMG US RENAL Fi nal Result * (ABNORMAL) Comprehensive metabolic panel (10/30/2024 5:23 AM EDT) Only the most recent of2 resultswithin the time period is included. SODIUM 141 133 - 146 mmol/L [facility] POTASSIUM 3.9 3.3 - 5.1 mmol/L [facility] CHLORIDE 105 96 - 108 mmol/L [facility] CO2 23 21 - 35 mmol/L [facility] BUN 19 6 - 19 mg/dL [facility] CREATININE 0.80 0.5 - 1.5 mg/dL [facility] GLUCOSE 121(H) 70 - 99 mg/dL [facility] ALBUMIN 3.4(L) 3.9 - 4.8 g/dL [facility] TOTAL PROTEIN 6.2(L) 6.5 - 8.0 g/dL [facility] CALCIUM 9.0 8.4 - 10.3 mg/dL [facility] ALKALINE PHOSPHATASE 172(H) 39 - 117 U/L [facility] TOTAL BILIRUBIN 0.5 0.0 - 1.2 mg/dL [facility] AST 43(H) 0 - 37 U/L [facility] ALT 39 0 - 40 U/L [facility] GLOBULIN 2.8 1 - 4.8 g/dL [facility] EGFR 74 >59 mL/min/1.7 3m2 [facility] Comment:Estimated glomerular filtration rate calculated using the CKD-EPI refit equation. ANION GAP 17 10 - 20 mmol/L [facility] Blood 10/30/2024 5:23 AM EDT 10/30/2024 5:55 AM EDT Corrina Lucas DO, MPH LAB BLOOD ORDER ANAYL Final Result Performing Organization Address City/[facility]/ZIP Co de Phone Number [address] [address] * (ABNORMAL) CBC (10/30/2024 5:23 AM EDT) Only the most recent of3 resultswithin the time period is included. WBC 6.25 4.00 - 11.00 K/uL [facility] RBC 4.79 4.00 - 5.20 M/uL [facility] HGB 13.1 12.0 - 16.0 g/dL [facility] HCT 40.1 36.0 - 46.0 % [facility] PLT 133(L) 150 - 450 K/uL [facility] MCV 83.7 80.0 - 100.0 fL [facility] MCH 27.3 27.0 - 31.0 pg [facility] MCHC 32.7 32.0 - 36.0 g/dL [facility] RDW 14.0 11.5 - 14.5 % [facility] MPV 10.9 8.4 - 12.0 fL [facility] NRBC 0.00 0.00 /100 WBCs [facility] ABSOLUTE NRBC 0.00 0.00 K/uL [facility] Blood 10/30/2024 5:23 AM EDT 10/30/2024 5:55 AM EDT Corrina Lucas DO, MPH LAB BLOOD ORDER AANLY Final Result Performing Organization Address City/[facility]/ZIP Co de Phone Number [address] [address] * Phosphorus (10/30/2024 5:23 AM EDT) Only the most recent of3 resultswithin the time period is included. PHOSPHORUS 2.9 2.7 - 4.5 mg/dL [facility] Blood 10/30/2024 5:23 AM EDT 10/30/2024 5:55 AM EDT Corrina Lucas DO, MPH LAB BLOOD ORDER ANALY Final Result [address] [address] * Magnesium (10/30/2024 5:23 AM EDT) Only the most recent of4 resultswithin the time period is included. MAGNESIUM 1.7 1.6 - 2.6 mg/dL [facility] Blood 10/30/2024 5:23 AM EDT 10/30/2024 5:55 AM EDT Corrina Lucas DO MPH LAB BLOOD ORDER ANALY Final Result Performing Organization Address [facility]/ZIP Co de Phone Number [address] [address] * PT-INR (10/29/2024 6:09 AM EDT) PT 12.6 10.2 - 12.9 sec [facility] INR 1.0 0.9 - 1.1 [facility] Comment:Therapeutic range fo r oral Vitamin K antagonists: 2.0-3.5 Blood 10/29/2024 6:09 AM EDT 10/29/2024 6:44 AM EDT us Corrina Lucas DO MPH LAB BLOOD ORDER ANALY Final Result Performing Organization Address City/[facility]/ZIP Co de Phone Number [address] [address] * Sedimentation rate (ESR) (10/28/2024 6:38 AM EDT) ESR 12 0 - 30 mm/h [facility] 10/28/2024 6:38 AM EDT 10/28/2024 6:46 AM EDT Gerson Homero Boyle LAB BLOOD ORDERABLES Final Re sult Performing Organization Address [facility] Co de Phone Number [address] [address] * (ABNORMAL) Basic metabolic panel (10/28/2024 6:38 AM EDT) Only the most recent of2 resultswithin the time period is included. SODIUM 137 133 - 146 mmol/L [facility] CHLORIDE 100 96 - 108 mmol/L [facility] POTASSIUM 3.1(L) 3.3 - 5.1 mmol/L [facility] CO2 25 21 - 35 mmol/L [facility] BUN 19 6 - 19 mg/dL [facility] CREATININE 0.70 0.5 - 1.5 mg/dL [facility] GLUCOSE 136(H) 70 - 99 mg/dL [facility] CALCIUM 8.7 8.4 - 10.3 mg/dL [facility] EGFR 87 >59 mL/min/1.7 3m2 [facility] Comment:Estimated glomerular filtration rate calculated using the CKD-EPI refit equation. ANION GAP 15 10 - 20 mmol/L [facility] Blood 10/28/2024 6:38 AM EDT 10/28/2024 6:46 AM EDT Gerson Boyle LAB BLOOD ORDERABLES Final Re sult Performing Organization Address City/[facility]/ZIP Co de Phone Number [address] [address] * Blood Culture, Routine (10/28/2024 12:10 AM EDT) Special Requests None 10/27/2024 11:29 PM EDT [facility] BLOOD CULTURE NO GROWTH 5 DAYS 11/02/2024 12:43 AM EDT [facility] Blood (Blood) 10/28/2024 12: 10 AM EDT 10/28/2024 12:32 AM EDT us Wolfgang Mckeon PA-C MICROBIOLOGY - GENERAL ORDER ANALY Final Result [facility] [address] [place] [address] * (ABNORMAL) CBC and differential (10/28/2024 12:10 AM EDT) WBC 16.15(H) 4.00 - 11.00 K/uL [facility] RBC 5.02 4.00 - 5.20 M/uL [facility] HGB 13.6 12.0 - 16.0 g/dL [facility] HCT 41.5 36.0 - 46.0 % [facility] PLT 148(L) 150 - 450 K/uL [facility] MCV 82.7 80.0 - 100.0 fL [facility] MCH 27.1 27.0 - 31.0 pg [facility] MCHC 32.8 32.0 - 36.0 g/dL [facility] RDW 13.9 11.5 - 14.5 % [facility] MPV 10.9 8.4 - 12.0 fL [facility] NRBC 0.00 0.00 /100 WBCs [facility] ABSOLUTE NRBC 0.00 0.00 K/uL [facility] DIFF METHOD Auto [facility] NEUTS 86.0(H) 48.0 - 76.0 % [facility] LYMPHS 6.1(L) 18.0 - 41.0 % [facility] MONOS 6.7 4.0 - 11.0 % [facility] EOS 0.4 0.0 - 5.0 % [facility] BASOS 0.3 0.0 - 1.5 % [facility] Granulocytes, immature (%) 0.5 0.0 - 0.9 % [facility] ABSOLUTE NEUTS 13.89(H) 1.92 - 7.60 K/uL [facility] ABSOLUTE LYMPHS 0.98 0.72 - 4.10 K/uL [facility] ABSOLUTE MONOS 1.08 0.16 - 1.10 K/uL [facility] ABSOLUTE EOS 0.07 0.00 - 0.50 K/uL [facility] ABSOLUTE BASOS 0.05 0.00 - 0.15 K/uL [facility] Granulocytes, immature 0.08 0.00 - 0.09 K/uL [facility] Blood 10/28/2024 12:1 0 AM EDT 10/28/2024 12:32 AM EDT us Wolfgang Mckeon PA-C LAB BLOOD ORDERABLES Final R esult Performing Organization Address City/[facility]/ZIP Co de Phone Number [address] [address] * (ABNORMAL) C-Reactive Protein (10/28/2024 12:10 AM EDT) [facility] C REACTIVE PROTEIN 25.3(H) 0.0 - 4.0 mg/L [facility] 10/28/2024 12:1 0 AM EDT 10/28/2024 12:32 AM EDT us Wolfgang Mckeon PA-C LAB BLOOD ORDERABLES Final R [facility] Performing Organization Address [facility] Co de Phone Number [address] [address] * BD DXA SPINE AND HIP WITH FOREARM (07/17/2024 1:37 PM EDT) Anatomical Region Laterality Modality Bone Density Bone Density 07/17/2024 1:23 PM EDT Impressions 07/18/2024 1:31 PM EDT Interpretation: Osteopenia. Narrative 07/18/2024 1:31 PM EDT Referred By: JOY CORDON Indications: Postmenopausal Scanner: PPI A with serial# of [id number] located at [facility] Bone Density Scan (DXA) 07/17/24 Details of [...] -2.5), or Osteoporosis (T-score <= -2.5). At [facility], T-scores are compared to peak bone density [...] Wood MD - 07/18/2024 Referred By: JOY CORDON Indications: Postmenopausal Scanner: PPI A with serial# of [id number] located at [facility] Bone Density Scan (DXA) 07/17/24 Details of [...] -2.5), or Osteoporosis (T-score <= -2.5). At [facility], T-scores are compared to peak bone density [...] BD BONE DENSITY DEXA Annabelle l Result * (ABNORMAL) Lipid panel (07/15/2022 6:41 AM EDT) HDL 36 mg/dL [facility] Comment: Interpretation <40 mg/dL: Low HDL cholesterol (major risk factor for CHD) Greater than or equal to 60 mg/dL: High HDL cholesterol ( negative risk factor for CHD) HDL - cholesterol is affected by a number of factors, e.g. smoking, excerise, hormones, sex and age. CHOLESTEROL 101 0 - 240 mg/dL [facility] TRIGLYCERIDES 138 30 - 160 mg/dL [facility] LDL 37(L) 50 - 129 mg/dL [facility] Comment: LDL levels in terms of risk for coronary heart disease: <100 mg/dL: Optimal 100-129 mg/dL: Near or above optimal 130-159 mg/dL: Borderline high 160-189 mg/dL: High >190 mg/dL: Very High CARDIAC RISK RATIO 2.8(L) 3.3 - 4.4 C [facility] Blood 07/15/2022 6:41 AM EDT 07/15/2022 7:14 AM EDT us Tyler Knowles DO, MPH LAB BLOOD ORDERABLES Final Result [facility] [address] [place] [address] from Last 3 Months or Most Recently Relevant to Health Maintenance Insurance MEDICARE PART A & B MEDICARE REPLACEMENT MEDICARE PART A & B Member Subscriber Plan / Payer ( fective 2008-Present) Name:[place] Member ID:[id number] Relation to Subscriber:Self Name:[place]rell Subscriber ID:[id number] Payer ID:[id number] Group ID:Not on file Type:Medicare Address: [employer] [address] MEDICARE REPLACEMENT MEDICARE PART A & B MEDICARE PART A & B MEDICARE PART A & B MEDICARE REPLACEMENT MEDICARE PART A & B MEDICARE PART A & B MEDICARE REPLACEMENT MEDICARE PART A & B MEDICARE REPLACEMENT MEDICARE PART A & B PPO AARP MEDICARE REPLACEMENT Advance Directives For more information, please contact: [phone] (9AM - 5PM [facility], Sunday-Sunday) Documents on File Type Date Recorded Patient Analyst [employer] Expl anation Healthcare Proxy 09/26/2018 12:30 PM MOLST 09/26/2018 12:30 PM * Full Code (Latest Code Status on File) Date Activated Date Inactivated Comments 10/28/2024 1:23 AM Question Answer Comments Code Status Confirmed With: Patient * DNR/DNI (No CPR/No Intubation) Date Activated Date Inactivated Comments 07/14/2022 8:44 PM 10/28/2024 1:23 AM Question Answer Comments Code Status Confirmed With: Patient * Full Code (Presumed) Date Activated Date Inactivated Comments 09/23/2018 5:59 PM 09/25/2018 6:40 PM * Full Code (Presumed) Date Activated Date Inactivated Comments 09/23/2018 11:00 AM 09/23/2018 5:59 PM Care Teams Corporate Tax Manager Relationship Specialty Start Date End Date Farrah Hemphill CNP [address] [place] [address] PCP - General Nurse Practitioner 10/27/24 Farrah Hemphill CNP [address] [place] [address] Nurse Practitioner 07/14/24 Additional Source Comments The information contained in this document represents components of the legal health record. It is not the complete legal health record.[facility]
--- OUTSIDE RECORDS SUMMARY | 2024-12-30 08:30 | XMS_ITS | Encounter Summary ---
Author Organization [facility] Address [address] [facility] [address] [place] [address] Phone Care Team Providers Care Statistician Name Role Phone Adenike Lainez NP Primary Care Provider Farrah Hemphill AGENT Unavailable + Farrah Hemphill CNP Primary Care Prov ider Encounter Details Date Type Department Care Team (Late st Contact Info) Description 09/19/2019 Transcribe Orders Virtual Department [address] [place] [address] Adenike Lainez, MARIXA [address] [place] [address] [email or web address] Encounter for screening laboratory testing for COVID-19 virus (Primary Dx) Social History Tobacco Use Types [...] Description 01/16/2025 10:00 AM EST Office Visit [facility] [address] [place] [address] Marcella Womack MD [address] [facility] [place] [address] [email or web address] documented as of this encounter Results * COVID-19 PCR Order (10/07/2019 9:35 AM EDT) Specimen Source NASOPHARYNGEAL SWAB (REFUSE COLLECTOR) [facility] COVID Testing Status Sent to [facility] Other 10/07/2019 9:35 AM EDT 10/07/2019 10:40 AM EDT Adenike Lainez NP BODY FLUIDS AND STOOLS ORDERABLES Final Result [facility] [address] [place] [address] documented in this encounter Visit Diagnoses Diagnosis Encounter for screening laboratory testing for COVID-19 virus- Primary documented in this encounter Care Teams Statistician Relationship Specialty Start Date End Date Adenike Lainez NP [address] [place] [address] [email or web address] PCP - General Family Medicine 03/29/18 10/26/24 Farrah Hemphill CNP [address] [place] [address] PCP - General Nurse Practitioner 10/27/24 Farrah Hemphill CNP [address] [place] [address] Nurse Practitioner 07/14/24 documented as of this encounter Additional Source Comments The information contained in this document represents components of the legal health record. It is not the complete legal health record.[facility]
--- OUTSIDE RECORDS SUMMARY | 2024-12-30 08:30 | XMS_ITS | Clinical Summary ---
Author Organization [employer] Address [address] [place] [address] 7 [place] [address] Care Team Providers Care Coat Room Attendant Name Role Phone Farrah Hemphill TUNNEL HEADING SUPERVISOR Primary Care Provider [phone] Allergies Active Allergy Reactions Criticality Noted Date Comments Avocado 07/14/2022 Calcitonin ([place]) Diarrhea,Nausea,Vomiting Guaifenesin Diarrhea,Dizziness,Hives 03/12/2009 Sertraline 01/10/2015 Sulfa Antibiotics Hives,Itching 03/12/2000 Medications Multiple Vitamin (multivitamin) tablet Take 1 tablet by mouth Once per day. Active mupirocin (Bactroban) 2 % ointment 5 Active calcium 200 MG tablet Take 200 mg by mouth Once per day. Active fluorouracil (Efudex) 5 % cream Apply topically Once per day. 5 Active naproxen (Naprosyn) 250 MG tablet Take 500 mg by mouth if needed for mild pain. Active chlorthalidone (Hygroton) 25 MG tabletIndications: Primary hypertension Take 1 tablet (25 mg) by mouth in the morning. 90 tablet 3 5 Active amLODIPine (Norvasc) 5 MG tabletIndications: Primary hypertension Take 1 tablet (5 mg) by mouth in the morning. 90 tablet 3 5 Active atorvastatin (Lipitor) 20 MG tabletIndications: Mixed hyperlipidemia Take 1 tablet (20 mg) by mouth in the morning. 90 tablet 3 5 Active escitalopram (Lexapro) 20 MG tabletIndications: Anxiety Take 1 tablet (20 mg) by mouth in the morning. 90 tablet 5 Active lisinopril 30 MG tabletIndications: Primary hypertension Take 1 tablet (30 mg) by mouth at bedtime for 360 doses. /90 days 90 tablet 3 5 11/13/19 26 Active Active Problems Problem Noted Date Diagnosed Date Dry cough 05/14/2024 Side effect of medication 05/14/2024 Gall bladder polyp 07/20/2022 Overview (07/09/2023): Incidentally found while in ED 07/2022, repeat 01/2023 showed unchanged 10 mm poly. Repeat 06/2023 stable, recommended repeat in 1 year, due 06/2024 Bilateral carotid artery stenosis 07/03/2022 Overview (08/02/2023): Mod on right, mild on left. UL 05/2022. On statin. No longer taking aspirin Primary hypertension 07/03/2022 Overview (07/03/2022): Rx amlodipine 5 mg, lisinopril 30mg, chlorthalidone 25. Mixed hyperlipidemia 07/03/2022 Overview (08/02/2023): Lipid panel 01/2023 Cholesterol, Total (<200) MG/DL 125 Triglyceride (mg/dL) in Serum/Plasma (<150) MG/DL 114 HDL Cholesterol (>39) MG/DL 41 LDL Cholesterol, Calculated (0-130) MG/DL 61 Non HDL Chol. (LDL+VLDL) (<160) MG/DL 84 Squamous cell carcinoma in situ 07/03/2022 Overview (07/03/2022): Managed by derm Anxiety 07/03/2022 Overview (07/03/2022): Rx lexapro, mood is stable. Rare bad days. Prediabetes 07/03/2022 Overview (08/02/2023): A1C 07/2023 6.3% Counseled on diet and exercise Encounters Date Type Department Care Team Description 12/08/2024 Telephone [place] [facility] [address] [place] [address] Farrah Hemphill FNP injection site /red and itchy 12/08/2024 Results Follow-Up [address] [place] [address] Farrah Hemphill FNP US Renal Complete 11/17/[address] [place] [address] Farrah Hemphill FNP Primary hypertension 11/11/2024 10:00 AM EDT Office Visit [address] [place] [address] Kerry Benson MD Cat bite, subsequent encounter (Primary Dx); Primary hypertension 11/03/2024 10:00 AM EDT Clinical Support [address] [place] [address] Daily Valdez LPN Cat bite, subsequent encounter 11/03/2024 Travel 11/01/2024 Travel 10/30/2024 Telephone [facility] [address] [place] [address] Farrah Hemphill FNP hospital discharge, obtain hospital records 10/29/[address] [address] Farrah Hemphill FNP Anxiety from Last 3 Months Immunizations Immunization Administration Dates Next Due Influenza High-dose Quadriva lent Preservative Free 11/30/2022,12/08/2021,12/26/2019 Influenza Quadrivalent Adjuvanted 12/20/2020 Influenza injectable quadriv alent preservative free 12/31/2013 Influenza, High Dose Seasona l, Preservative Free 12/27/2018,12/10/2017,12/16/2016,12/26,12/31/2014 Influenza, IIV3, injectable 11/16/2011, 1,12/06/2009 Influenza, Unspecified 01/23/2005 Influenza, seasonal, injecta ble, preservative free 12/24/2012 Pneumococcal Conjugate PCV 13 12/31/2014 Pneumococcal Polysaccharide PPSV23 06/09/2009 RSV Adjuvant 03/21/2023 TD (adult), 2 Lf tetanus tox oid, preservative free, adsorbed 08/30/2016 Zoster, Recombinant 12/03/2017,08/12/2017 Family History Medical History Relation Name Comments Stroke Father Leif Tristan Depression Mother Aretha Tristan Hypertension Mother Aretha Tristan Heart disease Paternal Grandmother Bob Tristan Cancer Sister Angie Tristan Relation Name Status Comments Father Leif Tristan Alive Mother Aretha Tristan Alive Paternal Grandmother Bob Tristan Alive Sister Angie Tristan Alive Social History Tobacco Use Types Packs/Day Years [...] your housing situation today? I have francis sun 08/02/[address] you li [...] file Not on file Not on file Last Filed Vital Signs Vital Sign Reading Time Taken Comments Blood Pressure 142/68 11/11/2024 10:26 AM EDT Pulse 60 08/09/2024 8:18 AM EDT Temperature 36.6 C (97.8 F) 08/09/2024 8:18 AM EDT Respiratory Rate 16 07/04/2024 11:33 AM EDT Oxygen Saturation 96% 08/09/2024 8:18 AM EDT Inhaled Oxygen Concentration - - Weight 58.5 kg (129 lb) 08/09/2024 8:18 AM EDT Height 162.6 cm (5' 4 ) 08/09/2024 8:18 AM EDT Body Mass Index 22.14 08/09/2024 8:18 AM EDT Plan of Treatment Health Maintenance Due Date Last Done Comments DTaP/Tdap/Td Vaccines (1 - Tdap) 08/31/2016 08/30/2016 COVID-19 Vaccine ( season) 2024 01/10/2024, 12/22/2022, 11/22/2021, Additional history exists Influenza Vaccine (#1) 2024 , 11/30/2022, 12/08/2021, Additional history exists Dental Oral Exam 01/31/2025 07/30/2024, 02/2023, 02/09/2021, Additional history exists Dental Prophylaxis 01/31/2025 07/30/2024, 1 03/31/2023, 02/20/2023, Additional history exists Alcohol/Substance Use Screening 05/14/2025 05/14/2024 Depression Screening 05/14/2025 05/14/2024, 05/15/19 SDOH Screening 05/14/2025 05/14/2024 Diabetes: Hemoglobin A1C 05/30/2025 025, 08/02/2023, 07/15/2022, Additional history exists Dental X-Ray: Bitewings 07/31/2025 07/31/19 25, 01/30/2024, 10/07/2021, Additional history exists Tobacco Screening 08/09/2025 08/09/2024 Dental X-Ray: Full Mouth 08/01/2027 07/30/2024, 03/12 Lipid Panel 01/25/2028 01/24/2023, 06/12/2022 Pneumococcal Vaccine: 50+ Years Completed 12/31/2014, 06/09/2009 Zoster Vaccines Completed 12/03/2017, 08/12/2017 RSV Patients and Patients Aged 60 years or older Completed 03/21/2023 HIB Vaccines Aged Out No longer eligi ble based on patient's age to complete this topic HPV Vaccines Aged Out No longer eligi ble based on patient's age to complete this topic Hepatitis A Vaccines Aged Out No long er eligible based on patient's age to complete this topic Hepatitis B Vaccines Aged Out No long er eligible based on patient's age to complete this topic IPV Vaccines Aged Out No longer eligi ble based on patient's age to complete this topic Meningococcal B Vaccine Aged Out No l onger eligible based on patient's age to complete this topic Meningococcal Vaccine Aged Out No xavi jair eligible based on patient's age to complete this topic RSV under 20 months Aged Out No longe r eligible based on patient's age to complete this topic Rotavirus Vaccines Aged Out No longer eligible based on patient's age to complete this topic Procedures Procedure Name Priority Date/Time Associated Diagnosis Comments US RENAL COMPLETE Routine 12/08/2024 Complex renal cyst AMB REFERRAL TO VASCULAR SURGERY Routine 10/02/2024 Abnormal ankle brachial index (THANIA) Full PROPHYLAXIS - ADULT Routine 07/30/2024 10:10 AM EDT INTRAORAL - COMPLETE SERIES OF RADIOGRAPHIC IMAGES Routine 07/30/2024 10:10 AM EDT PERIODIC ORAL EVALUATION - ESTABLISHED PATIENT Routine 07/30/2024 10:10 AM EDT HEMOGLOBIN A1C Routine 05/30/2024 11:26 AM EDT Routine health maintenance LIPID PANEL, STANDARD Routine 01/24/2023 8:42 AM EST Fatigue, unspecified type from Last 3 Months or Most Recently Relevant to Health Maintenance Results * US Renal Complete (12/08/2024) Anatomical Region Laterality Modality Kidney Ultrasound [facility] IMG US PROCEDURES Final R esult * Referral to Vascular Surgery (10/02/2024) [facility] OUTPATIENT REFERRAL ORDER ANALY Final Result * (ABNORMAL) Hemoglobin A1c (05/30/2024 11:26 AM EDT) Hemoglobin A1c 6.6(H) 4.8 - 5.6 % [facility] Comment: Prediabetes: 5.7 - 6.4 Diabetes: >6.4 Glycemic control for adults with diabetes: <7.0 Blood Venous blood specimen / Unknown 05/30/2024 11:26 AM EDT 05/30/2024 Narrative [facility] - 05/31/2024 6:05 AM EDT Performed at: [facility] [id number] Storeroom Clerk: Tania Lagos MD, Phone: [phone] [facility] LAB BLOOD ORDERABLES Annabelle l Result [facility] * Lipid Panel, Standard (01/24/2023 8:42 AM EST) Cholesterol, Total 125 (<200) MG/DL [facility] Triglyceride (mg/dL) in Serum/Plasma 114 (<150) MG/DL [facility] HDL Cholesterol 41 (>39) MG/DL [facility] LDL Cholesterol, Calculated 61 (0-130) MG/DL [facility] Non HDL Chol. (LDL+VLDL) 84 (<160) MG/DL [facility] Comment: Testing performed or reported by [facility], a Service of [facility], [address] [place] [id number] Lance Esposito MD, Agronomy Supervisor [facility]# [id number] Blood Venous blood specimen / Unknown 01/24/2023 8:42 AM EST 01/24/2023 8:44 AM EST Brandie Hicks PA-C LAB BLOOD ORDERABLES Final Result [facility] [address] [address] from Last 3 Months or Most Recently Relevant to Health Maintenance Insurance MEDICARE [facility] MEDICARE REPLACEMENT GENERIC DENTAL * Guarantor: Yanira Samuels Account Type Relation to Patient Date of Phone Billing Address Personal/Family Self [place] [id number] Care Teams Coat Room Attendant Relationship Specialty Start Date End Date Farrah Hemphill FNP [address] [place] [id number] PCP - General Family Medicine 06/04/24
--- OUTSIDE RECORDS SUMMARY | 2024-12-30 08:30 | XMS_ITS | Encounter Summary ---
Author Organization [employer] Address [address] [place] [address] [address] [place] [address] Care Team Providers Care Electric Milkers Installer Name Role Phone Farrah Hemphill Primary Care Provider [phone] Encounter Details Date Type Department Care Team (Late st Contact Info) Description 12/08/2024 Results Follow-Up [facility] [address] [place] [address] Farrah Hemphill FNP [address] [place] [address] US Renal Complete Social History Tobacco Use Types Packs/Day Years [...] Time PHQ-9 Depression Total Score: 2 05/15/19 11:53 AM EST documented as of this encounter Care Teams Electric Milkers Installer Relationship Specialty Start Date End Date Farrah Hemphill FNP [address] [place] [id number] PCP - General Family Medicine 06/04/24 documented as of this encounter
== END 2024-12-30 08:21 | disposition home or self-care (01) ==
LOC: HO.US 08:20
PROVIDERS: PCP Nurse Practitioner Family; Visit Provider Surgery Vascular Surgery
DX: I73.9 Peripheral vascular disease, unspecified (principal)
CPT/HCPCS: 76775; 93922; 93925; 93975

== ENCOUNTER → 2024-12-30 08:23 | Outpatient (BNV) | payer MEDICARE, SELFPAY | PROVIDERS: PCP Nurse Practitioner Family; Visit Provider Radiology Diagnostic Radiology | DX: I70.211 Atherosclerosis of native arteries of extremities with intermittent claudication, right leg (principal); N28.1 Cyst of kidney, acquired; I10 Essential (primary) hypertension; R94.4 Abnormal results of kidney function studies | CPT/HCPCS: 76775; 93922; 93925; 93975 ==

== ENCOUNTER 2025-02-10 09:42 | Outpatient (AMB) | payer MEDICARE, SELFPAY ==
[2025-02-10 09:44] VITALS: BMI 20.8
--- NOTE | 2025-02-10 09:44 | A.OFFVIS_ITS ---
Vital Signs 02/10/25 09:44 Height 5 ft 5.5 in Weight 127 lb BMI 20.8 Intake Visit Reasons: follow up Art US 12/30/24 Intake Note: follow up Arterial US 12/30/24 & renal US 12/30/24. Pt states cramping worse in Right LE w/ ambulation and while sleeping. Intake Counselor Required: No Accompanied by: Self / Same As Patient Allergies mussels Allergy (Severe, Verified 02/10/25 09:49) Gastrointestinal Upset Sulfa (Sulfonamide Antibiotics) Allergy (Intermediate, Verified 02/10/25 09:49) Hives guaifenesin (From Mucinex) Adverse Reaction (Mild, Verified 02/10/25 09:49) Dizziness avacodo Allergy (Severe, Uncoded 02/10/25 09:49) Gastrointestinal Upset salmon Allergy (Severe, Uncoded 02/10/25 09:49) Gastrointestinal Upset trout Allergy (Severe, Uncoded 02/10/25 09:49) Gastrointestinal Upset HPI HPI follow up Art US 12/30/24: Details: The patient is an 79 year old individual presenting for an arterial followup. The patient reports experiencing calf pain, especially in the right leg, the fur ther the patient walks, and also notes that the feet often appear blue on the sides. Despite this, the patient can walk a mile on flat ground, but has difficulty with inclines due to respiratory issues. A recent ultrasound of the kidneys, performed due to concerns about blood pressure, was normal. Arterial testing revealed a right ankle-brachial index (THANIA) of 0.89 and a left THANIA of 1.05. The patient also has a history of varicose veins. Review of Systems Const All systems reviewed & are unremarkable except as noted in HPI and below Reports no additional complaints ENT Reports Normal hearing present Card Denies chest pain, Denies chest pain at rest, Denies chest pain with activity and Denies pedal edema Resp Denies cough GI Denies abdominal pain Musc Denies abnormal gait, Denies muscle cramps and Denies radiating pain into limb Skin/Breast Denies skin ulcer and Denies wounds Neuro Reports Normal hearing present and Denies abnormal gait Psych Reports no additional complaints Physical Exam Vital Signs: BMI result Body Mass Index 20.8 Const General: cooperative, healthy appearing and comfortable Orientation/consciousness: oriented to person, oriented to place and oriented to time HEENT Head: Yes normal to inspection Neck Neck: Yes normal visual inspection Carotids: no bruits Chest Chest palpation & inspection: normal inspection of the chest Resp Effort & Inspection: normal respiratory effort and able to speak in complete sentences Auscultation: clear to auscultation bilaterally, no crackles, no rales, no rhonchi and no wheezes Cardio Other: Left palpable dorsalis pedis pulse. Rest or triphasic signals Rate: regular rate Rhythm: regular rhythm Heart sounds: S1 normal heart sound present and S2 normal heart sound present Bruits: no carotid bruits Peripheral pulses: Peripheral pulses 2+ throughout GI Inspection: Yes normal to inspection Skin Wounds: no wounds Hair: normal Neuro General: oriented to person, oriented to place and oriented to time Cranial nerves: Yes CN's II-XII intact bilaterally and Yes Normal hearing present Cognition (Neuro): normal cognition Motor exam (neuro): 5/5 motor strength present throughout Extrem Other: venous exam: No significant superficial varicosities or spider telangiectasias, minimal edema General: No clubbing, No cyanosis and No edema Psych Appearance: grossly normal Mental Status: mental status grossly normal Speech and movement: Normal speech and movement present Results Reviewed Results Reviewed: Arterial testing dated 12/30/2024 demonstrates THANIA on the right of 0.89 and on the left of 1.05. Renal ultrasound dated 12/30/2024 demonstrates no significant arterial disease. Assessment & Plan Assessment & Plan (1) PAD (peripheral artery disease): Code(s): I73.9 - Peripheral vascular disease, unspecified Category: Medical Plan: In short patient has stable claudication. I did review the pathophysiology of peripheral vascular disease with the patient. In addition we did discuss routine conservative measures including a healthy diet and the importance of exercise and ambulation. We did discuss risk factor modification. The patient will continue to to follow-up with surveillance follow-up in approximately 1 year. Thank you for allowing us to participate in this patient's care. If there are any questions or concerns please do not hesitate to contact us. Orders: Orders US arterial duplex LE BI 1 Year I73.9 - Peripheral vascular disease, unspecified Coding Level of Care Code Complex visit Add On G2211 Diagnoses PAD (peripheral artery disease) I73.9
--- OUTSIDE RECORDS SUMMARY | 2025-02-10 10:44 | XMS_ITS | Encounter Summary ---
Author Organization [facility] Address [address] [facility] [address] [place] [address] Phone Care Team Providers Care Police Detective Name Role Phone Adenike Lainez NP Primary Care Provider Farrah Hemphill CHAIN SAW OPERATOR Unavailable + Farrah Hemphill CNP Primary Care Prov ider Encounter Details Date Type Department Care Team (Latest Contact Info) Description 09/05/2024 Transcribe Orders Virtual Department 30 [place] [address] Farrah Hemphill CNP [address] [place], [place] [phone] Complex renal cyst (Primary Dx) Social History [...] on file documented as of this encounter Results * [...] clinician's provided indication for this examination in [facility]:Outside Radiology Order; complex renal cyst TECHNIQUE: Kidney [...] are similar to prior study Farrah Hemphill CNP [facility] RENAL Fi nal Result documented in this encounter Visit Diagnoses Diagnosis Complex renal cyst- Primary 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 It is not the complete legal health record.[facility]
--- OUTSIDE RECORDS SUMMARY | 2025-02-10 10:44 | XMS_ITS | Encounter Summary ---
Author Organization [employer] Address [address] [place] [address] Care Team Providers Care Principal Systems Architect Name Role Phone Brandie Hicks PA-C Primary Care Provider Farrah Ryan Primary Care Provider [phone] Terese Hunt DO Primary Care Provider [phone] Encounter Details Date Type Department Care Team [...] Care Team (Late st Contact Info) Description 02/23/2025 10:00 AM EST Office Visit [facility] MEDICAL [address] [place] [address] Terese Hunt DO [address] [place] [address] 05/06/2025 12:00 PM EST Office Visit [facility] DENTAL [address] [place] [address] Beth Franco 58 [place] [address] documented as of this encounter Visit Diagnoses Not on filedocumented in this encounter Care Teams Principal Systems Architect Relationship Specialty Start Date End Date Brandie Hicks PA-C PCP - General Family Medicine 06/12/22 06/03/24 Farrah Hemphill FNP [address] [place] [address] PCP - General Family Medicine 06/04/24 01/07/25 Terese Hunt DO [address] [place] [address] PCP - General Resaw Carriage Operator 01/08/25 documented as of this encounter
--- OUTSIDE RECORDS SUMMARY | 2025-02-10 10:44 | XMS_ITS | Encounter Summary ---
Author Organization [facility] Address 399 [facility] [address] [place] [address] Phone Care Team Providers Care Calender Let Off Operator Name Role Phone Adenike Lainez NP Primary Care Provider Farrah Hemphill MOTOR BLOCK MECHANIC Unavailable + Farrah Hemphill CNP Primary Care Prov ider Encounter Details Date Type Department Care Team (Late st Contact Info) Description 09/23/2018 Procedure Pass OR Admitting Dept - Virtual Department 30 [place] [address] Social History Tobacco Use Types Packs/Day Years [...] on filedocumented in this encounter Care Teams Calender Let Off Operator Relationship Specialty Start Date End Date Adenike Lainez NP [address] [place], [place] [phone] [email or web address] PCP - General Family Medicine 03/29/18 10/26/24 Farrah Hemphill CNP [address] [place] [address] PCP - General Nurse Practitioner 10/27/24 Farrah Hemphill CNP [address] [place] [address] Nurse Practitioner 07/14/24 documented as of this encounter Additional Source Comments The information contained in this document represents components of the legal health record. It is not the complete legal health record.[facility]
--- OUTSIDE RECORDS SUMMARY | 2025-02-10 10:44 | XMS_ITS | Encounter Summary ---
Author Organization [facility] Address [address] [employer] [facility] [address] [place] [address] Phone Care Team Providers Care Home School Coordinator Name Role Phone Adenike Lainez NP Primary Care Provider Farrah Hemphill EXECUTIVE SECRETARY Unavailable + Farrah Hemphill CNP Primary Care Prov ider Encounter Details Date Type Department Care Team (Latest Contact Info) Description 05/06/2018 Ancillary Orders [address] [phone] Marcella Womack MD [address] [place] [address] Orthopedics & Sports Medicine, [place], [place] [phone] [email or web address] Osteoarthritis of left hip, unspecified osteoarthritis [...] as of this encounter Plan of Treatment Pending Results Name Type Priority Associated Diagnoses [...] type documented in this encounter Care Teams Home School Coordinator Relationship Specialty Start Date End Date Adenike Lainez NP [address] [place] [address] [email or web address] PCP - General Family Medicine 03/29/18 10/26/24 Farrah Hemphill CNP [address] [place] [address] PCP - General Nurse Practitioner 10/27/24 Farrah Hemphill CNP [address] [place] [address] Nurse Practitioner 07/14/24 documented as of this encounter Additional Source Comments The information contained in this document represents components of the legal health record. It is not the complete legal health record.[facility]
--- OUTSIDE RECORDS SUMMARY | 2025-02-10 10:44 | XMS_ITS | Encounter Summary ---
Author Organization [facility] Address [address] [facility] [address] [place] [address] Phone Care Team Providers Care Jewelry Cutter Name Role Phone Adenike Lainez NP Primary Care Provider Farrah Hemphill CONSOLIDATION ACCOUNTANT Unavailable + Farrah Hemphill CNP Primary Care Prov ider Encounter Details Date Type Department Care Team (Late st Contact Info) Description 05/06/2018 Ancillary Orders [facility] Orthopedics & Sports Medicine [address] [place] [address] Marcella Womack MD [address] [place] [address] Orthopedics & Sports Medicine, [facility] [place], [place] [phone] [email or web address] Social History Tobacco Use Types Packs/Day Years [...] on filedocumented in this encounter Care Teams Jewelry Cutter Relationship Specialty Start Date End Date Adenike Lainez NP [address] [place] [address] [email or web address] PCP - General Family Medicine 03/29/18 10/26/24 Farrah Hemphill CNP [address] [place] [address] PCP - General Nurse Practitioner 10/27/24 Farrah Hemphill CNP [address] [place] [address] Nurse Practitioner 07/14/24 documented as of this encounter Additional Source Comments The information contained in this document represents components of the legal health record. It is not the complete legal health record.[facility]
--- OUTSIDE RECORDS SUMMARY | 2025-02-10 10:44 | XMS_ITS | Encounter Summary ---
Author Organization [employer] Address [address] [place] [address] Care Team Providers Care Bar Examiner Name Role Phone Brandie Hicks PA-C Primary Care Provider Farrah Ryan Primary Care Provider [phone] Terese Hunt DO Primary Care Provider [phone] Encounter Details Date Type Department Care Team [...] Description 02/23/2025 10:00 AM EST Office Visit [facility] MEDICAL [address] [place] [address] Terese Hunt DO [address] [place] [address] 05/06/2025 12:00 PM EST Office Visit [facility] DENTAL [address] [place] [address] Beth Franco 58 [place] [address] documented as of this encounter Visit Diagnoses Not on filedocumented in this encounter Care Teams Bar Examiner Relationship Specialty Start Date End Date Brandie Hicks PA-C PCP - General Family Medicine 06/12/22 06/03/24 Farrah Hemphill FNP [address] [place] [address] PCP - General Family Medicine 06/04/24 01/07/25 Terese Hunt DO [address] [place] [address] PCP - General Manager Labor Relations 01/08/25 documented as of this encounter
--- OUTSIDE RECORDS SUMMARY | 2025-02-10 10:44 | XMS_ITS | Encounter Summary ---
Author Organization [facility] Address 399 [facility] [address] [place] [address] Phone Care Team Providers Care Court Manager Name Role Phone Adenike Lainez NP Primary Care Provider Farrah Hemphill GUEST SERVICES Unavailable + Farrah Hemphill CNP Primary Care Prov ider Encounter Details Date Type Department Care Team (Latest Contact Info) Description 09/18/2023 Transcribe Orders Virtual Department 30 [place] [address] Joy Hicks PA [address] [place] [address]. [place] [address] [email or web address] Other specified menopausal and [...] Referred By: JOY HICKS Indications: Postmenopausal Scanner: [employer] A with serial# of [id number] located at [facility] Bone Density Scan (DXA) 07/17/24 Details of [...] -2.5), or Osteoporosis (T-score <= -2.5). At [facility], T-scores are compared to peak bone density [...] Referred By: JOY HICKS Indications: Postmenopausal Scanner: [employer] A with serial# of [id number] located at [facility] Bone Density Scan (DXA) 07/17/24 Details [...] -2.5), or Osteoporosis (T-score <= -2.5). At [facility], T-scores are compared to peak bone density [...] disorders documented in this encounter Care Teams Court Manager Relationship Specialty Start Date End Date Adenike Lainez NP [address] [place] [address] [email or web address] PCP - General Family Medicine 03/29/18 10/26/24 Farrah Hemphill CNP [address] [place] [address] PCP - General Nurse Practitioner 10/27/24 Farrah Hemphill CNP [address] [place] [address] Nurse Practitioner 07/14/24 documented as of this encounter Additional Source Comments The information contained in this document represents components of the legal health record. It is not the complete legal health record.[facility]
--- OUTSIDE RECORDS SUMMARY | 2025-02-10 10:44 | XMS_ITS | Encounter Summary ---
Author Organization [facility] Address [address] [facility] [address] [place] [address] Phone Care Team Providers Care Billet Cutter Name Role Phone Adenike Lainez NP Primary Care Provider Farrah Hemphill WING COMMANDER Unavailable + Farrah Hemphill WING COMMANDER Primary Care Prov ider Encounter Details Date Type Department Care Team (Late st Contact Info) Description 07/21/2024 Procedure Pass [facility], [address] [address] Social History Tobacco Use Types Packs/Day Years [...] on filedocumented in this encounter Care Teams Billet Cutter Relationship Specialty Start Date End Date Adenike Lainez NP [address] [place] [address] [email or web address] PCP - General Family Medicine 03/29/18 10/26/24 Farrah Hemphill CNP [address] [place] [address] PCP - General Nurse Practitioner 10/27/24 Farrah Hemphill CNP [address] [place] [address] Nurse Practitioner 07/14/24 documented as of this encounter Additional Source Comments The information contained in this document represents components of the legal health record. It is not the complete legal health record.[facility]
--- OUTSIDE RECORDS SUMMARY | 2025-02-10 10:44 | XMS_ITS | Encounter Summary ---
Author Organization [employer] Address [address] [place] [address] Care Team Providers Care Stations Superintendent Name Role Phone Brandie Hicks PA-C Primary Care Provider Farrah Ryan Primary Care Provider [phone] Terese Hunt DO Primary Care Provider [phone] Encounter Details Date Type Department Care Team [...] Description 02/23/2025 10:00 AM EST Office Visit [facility] MEDICAL [address] [place] [address] Terese Hunt DO [address] [place] [address] 05/06/2025 12:00 PM EST Office Visit [facility] DENTAL [address] [place] [address] Beth Franco 58 [place] [address] documented as of this encounter Visit Diagnoses Not on filedocumented in this encounter Care Teams Stations Superintendent Relationship Specialty Start Date End Date Brandie Hicks PA-C PCP - General Family Medicine 06/12/22 06/03/24 Farrah Hemphill FNP [address] [place] [address] PCP - General Family Medicine 06/04/24 01/07/25 Terese Hunt DO [address] [place] [address] PCP - General Woven Label Designer 01/08/25 documented as of this encounter
--- OUTSIDE RECORDS SUMMARY | 2025-02-10 10:45 | XMS_ITS | Encounter Summary ---
Author Organization [employer] Address [address] [place] [address] Care Team Providers Care Respiratory Support Technician Name Role Phone Brandie Hicks PA-C Primary Care Provider Farrah Ryan Primary Care Provider [phone] Terese Hunt DO Primary Care Provider [phone] Encounter Details Date Type Department Care Team [...] Description 02/23/2025 10:00 AM EST Office Visit [facility] MEDICAL [address] [place] [address] Terese Hunt DO [address] [place] [address] 05/06/2025 12:00 PM EST Office Visit [facility] DENTAL [address] [place] [address] Beth Franco 58 [place] [address] documented as of this encounter Visit Diagnoses Not on filedocumented in this encounter Care Teams Respiratory Support Technician Relationship Specialty Start Date End Date Brandie Hicks PA-C PCP - General Family Medicine 06/12/22 06/03/24 Farrah Hemphill FNP [address] [place] [address] PCP - General Family Medicine 06/04/24 01/07/25 Terese Hunt DO [address] [place] [address] PCP - General Button Station Worker 01/08/25 documented as of this encounter
--- OUTSIDE RECORDS SUMMARY | 2025-02-10 10:45 | XMS_ITS | Encounter Summary ---
Author Organization [facility] Address 399 [facility] [address] [place] [address] Phone Care Team Providers Care Sensitizer Name Role Phone Adenike Lainez NP Primary Care Provider Farrah Hemphill CNP Unavailable + Farrah Hemphill CNP Primary Care Prov ider Reason for Referral * Outpatient Procedure - Closed Specialty Diagnoses / Procedures Referred By Kriss godoy Referred To Contact Radiology Diagnoses Other specified symptoms and signs involving the circulatory and respiratory systems Procedures US Carotid Duplex Complete (Bilateral) Adenike Lainez NP [address] [place] [address] Phone: tel: fax: mailto:[email or web address] Referral ID Status Reason Start Date Expiration Date Visits Re quested Visits Authorized [id number] Closed 05/08/2022 05/08/2023 1 1 Encounter Details Date Type Department Care Team (Late st Contact Info) Description 05/08/2022 Transcribe Orders Virtual Department 30 [place] [address] Adenike Lainez NP [address] [place], [place] [phone] [email or web address] Other specified symptoms and signs involving the [...] systems documented in this encounter Care Teams Sensitizer Relationship Specialty Start Date End Date Adenike Lainez NP [address] [place] [address] [email or web address] PCP - General Family Medicine 03/29/18 10/26/24 Farrah Hemphill CNP [address] [place] [address] PCP - General Nurse Practitioner 10/27/24 Farrah Hemphill CNP [address] [place] [address] Nurse Practitioner 07/14/24 documented as of this encounter Additional Source Comments The information contained in this document represents components of the legal health record. It is not the complete legal health record.[facility]
--- OUTSIDE RECORDS SUMMARY | 2025-02-10 10:45 | XMS_ITS | Encounter Summary ---
Author Organization [facility] Address [address] [facility] [address] [place] [address] Phone Care Team Providers Care Ecommerce Project Manager Name Role Phone Adenike Lainez NP Primary Care Provider Farrah Hemphill INSURANCE SALES ASSISTANT Unavailable + Farrah Hemphill CNP Primary Care Prov ider Encounter Details Date Type Department Care Team (Latest Contact Info) Description 06/15/2023 Transcribe Orders Virtual Department 30 [place] [address] Brandie Hicks PA [address] [place] [address]. [place] [address] [email or web address] Gallbladder polyp (Primary Dx) Social History [...] clinician's provided indication for this examination in [facility]:Outside Radiology Order; gallbladder polyp TECHNIQUE: US Abdominal [...] gallbladder documented in this encounter Care Teams Ecommerce Project Manager Relationship Specialty Start Date End Date Adenike Lainez NP [address] [place] [address] [email or web address] PCP - General Family Medicine 03/29/18 10/26/24 Farrah Hemphill CNP [address] [place] [address] PCP - General Nurse Practitioner 10/27/24 Farrah Hemphill CNP [address] [place] [address] Nurse Practitioner 07/14/24 documented as of this encounter Additional Source Comments The information contained in this document represents components of the legal health record. It is not the complete legal health record.[facility]
--- OUTSIDE RECORDS SUMMARY | 2025-02-10 10:45 | XMS_ITS | Encounter Summary ---
Author Organization [facility] Address [address] [facility] [address] [place] [address] Phone Care Team Providers Care Director Of Leadership Development Name Role Phone Adenike Lainez NP Primary Care Provider Farrah Hemphill PROJECT DEVELOPMENT ENGINEER Unavailable + Farrah Hemphill CNP Primary Care Prov ider Reason for Referral * Hospital - Outpatient - Closed Specialty Diagnoses / Procedures Referred By Kriss godoy Referred To Contact Radiology Diagnoses Claudication Procedures US Lower Extremity Arteries (THANIA) Physio Complete Bilat Farrah Hemphill CNP Phone: tel: fax: Referral ID Status Reason Start Date Expiration Date Visits Re quested Visits Authorized [id number] Closed 06/06/2024 06/06/2025 1 1 Encounter Details Date Type Department Care Team (Latest Contact Info) Description 06/06/2024 Transcribe Orders Virtual Department 30 [place] [address] Farrah Hemphill CNP [address] [place], [place] [phone] Claudication (Primary Dx); Pancreatic abnormality; Acute pain [...] this examination in Epic: Outside Radiology Order; claudication TECHNIQUE: Bilateral lower [...] Posterior Tibial: 64 Dorsalis Pedis: 66 THANIA: BOARDER MACHINE Ankle-Brachial Index: .58 DPA Ankle-Brachial Index: .60 THANIA interpretation: Moderate arterial insufficiency. Digit: Toe Pressure: 59 Toe/Brachial Index (TBI): .54 TBI interpretation: suggests arterial insufficiency. LEFT LOWER EXTREMITY: Segmental Pressures: Thigh: 140, 131 Calf: 125 Posterior Tibial: 100 Dorsalis Pedis: 103 THANIA: BOARDER MACHINE Ankle-Brachial Index: .91 DPA Ankle-Brachial Index: .84 [...] for this examination in Epic:Outside Radiology Order; claudication TECHNIQUE: Bilateral lower extremity [...] Posterior Tibial: 64 Dorsalis Pedis: 66 THANIA: BOARDER MACHINE Ankle-Brachial Index: .58 DPA Ankle-Brachial Index: .60 THANIA interpretation: Moderate arterial insufficiency. Digit: Toe Pressure: 59 Toe/Brachial Index (TBI): .54 TBI interpretation: suggests arterial insufficiency. LEFT LOWER EXTREMITY: Segmental Pressures: Thigh: 140, 131 Calf: 125 Posterior Tibial: 100 Dorsalis Pedis: 103 THANIA: BOARDER MACHINE Ankle-Brachial Index: .91 DPA Ankle-Brachial Index: .84 [...] is likely adequate forwound healing. Farrah Hemphill PROJECT DEVELOPMENT ENGINEER CV US VASCULAR Fi nal Result * US ABDOMEN LIMITED RIGHT UPPER QUADRANT (07/01/2024 9:45 AM EDT) MGB IMG RECOMMENDATION COMMENT Differential: cyst 1.4 cm abdominal; Rule Out: right interpolar kidney solid component [facility] Anatomical Region Laterality Modality Abdomen Ultrasound 07/01/2024 [...] this examination in Epic: Outside Radiology Order; left shoulder pain. Review [...] for this examination in Epic:Outside Radiology Order; left shoulder pain. Review of [...] and documented using a closedloop communication system. [facility] PROJECT DEVELOPMENT ENGINEER IMG US ABDOMEN Fi nal Result * [...] cufftear. Suspected calcific rotator cuff tendinopathy. Farrah Hemphill PROJECT DEVELOPMENT ENGINEER IMG XR UPPER EXTRE MITY Final Result documented in this encounter Visit Diagnoses Diagnosis Claudication- Primary Unspecified peripheral vascular disease Pancreatic abnormality Acute pain of left shoulder Pancreatic abnormality Acute pain of left shoulder Claudication Unspecified peripheral vascular disease documented in this encounter Care Teams Director Of Leadership Development Relationship Specialty Start Date End Date Adenike Lainez NP [address] [place] [address] PCP - General Family Medicine 03/29/18 10/26/24 Farrah Hemphill CNP [address] [place] [address] PCP - General Nurse Practitioner 10/27/24 Farrah Hemphill CNP [address] [place] [address] Nurse Practitioner 07/14/24 documented as of this encounter Additional Source Comments The information contained in this document represents components of the legal health record. It is not the complete legal health record.[facility]
--- OUTSIDE RECORDS SUMMARY | 2025-02-10 10:45 | XMS_ITS | Encounter Summary ---
Author Organization [employer] Address [address] [place] [address] 7[address] [place] [address] Care Team Providers Care Behavioral Medical Director Name Role Phone Farrah Hemphill Primary Care Provider [phone] Terese Hunt DO Primary Care Provider [phone] Encounter Details Date Type Department Care Team (Late st Contact Info) Description 09/03/2024 Orders Only [facility] Information Management [address] [place] [address] Farrah Hemphill FNP [address] [place] [address] Social History Tobacco Use Types Packs/Day Years [...] Description 02/23/2025 10:00 AM EST Office Visit [facility] MEDICAL [address] [place] [address] Terese Hunt DO [address] [place] [address] 05/06/2025 12:00 PM EST Office Visit [facility] DENTAL [address] [place] [address] Beth Franco 58 [place] [address] documented as of this encounter Procedures Procedure [...] documented as of this encounter Care Teams Behavioral Medical Director Relationship Specialty Start Date End Date Farrah Hemphill FNP [address] [place] [address] PCP - General Family Medicine 06/04/24 01/07/25 Terese Hunt DO [address] [place] [address] PCP - General Efficiency Miner Blasting 01/08/25 documented as of this encounter
--- OUTSIDE RECORDS SUMMARY | 2025-02-10 10:45 | XMS_ITS | Encounter Summary ---
Author Organization [facility] Address [address] [facility] [address] [place] [address] Phone Care Team Providers Care Radiotelegrapher Name Role Phone Adenike Lainez NP Primary Care Provider Farrah Hemphill CNP Unavailable + Farrah Hemphill CNP Primary Care Prov ider Reason for Referral * MRI/CAT Scan - Closed Specialty Diagnoses / Procedures Referred By Kriss godoy Referred To Contact Radiology Diagnoses Renal cyst Procedures MRI Cholangiopancreatography (MRCP) Farrah Hemphill CNP [address] [place] [address] Phone: tel: fax: Referral ID Status Reason Start Date Expiration Date Visits Re quested Visits Authorized [id number] Closed 07/21/2024 07/21/2025 1 1 Encounter Details Date Type Department Care Team (Latest Contact Info) Description 07/21/2024 Transcribe Orders Virtual Department [address] [place] [address] Farrah Hemphill CNP [address] [place], [place] [phone] Renal cyst (Primary Dx) Social History Tobacco [...] polyp and complex/com plicated right renal cyst. [facility] Anatomical Region Laterality Modality Pancreas, Biliary Magnetic [...] change. Small perineural cysts are noted. Large mxejw-bd-wlmf demonstrates a probable fibroid uterus. Procedure Note Abhilash Dukes MD - 08/08/2024 MRI CHOLANGIOPANCREATOGRAPHY (MRCP) [...] wall there is a T2 hyperintense and V3lybgqesliwt filling defect demonstrating enhancement measuringapproximately 8 mm [...] left-sided peripelvic cyst. A 5 mm intrinsic [id number] focus is seen in the right lower [...] change. Small perineural cysts are noted. Large qacrg-gd-fxed demonstrates a probable fibroid uterus. IMPRESSION: 1. [...] disease documented in this encounter Care Teams Radiotelegrapher Relationship Specialty Start Date End Date Adenike Lainez NP [address] [place] [address] [email or web address] PCP - General Family Medicine 03/29/18 10/26/24 Farrah Hemphill CNP [address] [place] [address] PCP - General Nurse Practitioner 10/27/24 Farrah Hemphill CNP [address] [place] [address] Nurse Practitioner 07/14/24 documented as of this encounter Additional Source Comments The information contained in this document represents components of the legal health record. It is not the complete legal health record.[facility]
--- OUTSIDE RECORDS SUMMARY | 2025-02-10 10:45 | XMS_ITS | Clinical Summary ---
Author Organization [facility] Address [address] [place] [address] Care Team Providers Care Mirror Silverer Name Role Phone None, Provider KILN PULLER Primary Care Provider Unavaila ble Allergies Active [...] Years Used Date Smoking Tobacco: Former Cigarettes 0 Q uit: 1982 Smokeless Tobacco: Never Alcohol [...] on file Sexual Orientation Not on file Last Filed [...] - 1-dose 75+ series) 12/06/2018 COVID-19 Vaccine (2024- season) 2024 Care Teams Mirror Silverer Relationship Specialty Start Date End Date None, Provider, KILN PULLER PCP - General 11/30/16
--- OUTSIDE RECORDS SUMMARY | 2025-02-10 10:45 | XMS_ITS | Encounter Summary ---
Author Organization [facility] Address [address] [facility] [facility] [address] [place] [address] Phone Care Team Providers Care Paraprofessional Aide Name Role Phone Adenike Lainez NP Primary Care Provider Farrah Hemphill MANAGER OF EXHIBITIONS AND COLLECTIONS Unavailable + Farrah Hemphill CNP Primary Care Prov ider Encounter Details Date Type Department Care Team (Late st Contact Info) Description 07/19/2022 Transcribe Orders [facility] Specimen Processing [address] [place] [address] Tanesha Quarles MD [address] [place] [address] [email or web address] Social History Tobacco Use Types Packs/Day Years [...] on filedocumented in this encounter Care Teams Paraprofessional Aide Relationship Specialty Start Date End Date Adenike Lainez NP [address] [place] [address] [email or web address] PCP - General Family Medicine 03/29/18 10/26/24 Farrah Hemphill CNP [address] [place] [address] PCP - General Nurse Practitioner 10/27/24 Farrah Hemphill CNP [address] [place] [address] Nurse Practitioner 07/14/24 documented as of this encounter Additional Source Comments The information contained in this document represents components of the legal health record. It is not the complete legal health record.[facility]
--- OUTSIDE RECORDS SUMMARY | 2025-02-10 10:45 | XMS_ITS | Encounter Summary ---
Author Organization [employer] Address [address] [place] [address] 7 [place] [address] Care Team Providers Care Press Clippings Cutter And Paster Name Role Phone Brandie Hicks PA-C Primary Care Provider Farrah Ryan Primary Care Provider [phone] Terese Hunt DO Primary Care Provider [phone] Reason for Visit * Reason Onset Date Comments New PCP 09/04/2023 Encounter Details Date Type Department Care Team (Late st Contact Info) Description 09/04/[address] [address] Brandie Hicks PA-C New PCP Social History [...] Dr. Harman will be seeing patients at [facility] and may be a better fit as MEGGAN is only there one day a week. * Telephone Encounter - Mariam Santos - 09/04/2023 1:59 PM EDT Patient LMOM on 08/30/2023 asking to speak to someone about changing PCP due to current PCP leavingin a few months. Patient has requested a MD and not a VP DATA for a new PCP, as of right now only Kerry Benson seems mike taking in new patients as an MD. Would this patient be a good fit or should we recommend another PCP? documented in this encounter Plan of Treatment Upcoming Encounters Date Type Department Care Team (Late st Contact Info) Description 02/23/2025 10:00 AM EST Office Visit [facility] MEDICAL [address] [place] [address] Terese Hunt, DO [address] [place] [address] 05/06/2025 12:00 PM EST Office Visit [facility] DENTAL [address] [place] [address] Beth Franco [address] [place] [address] documented as of this encounter Visit Diagnoses Not on filedocumented in this encounter Additional Health Concerns Assessment Noted Time PHQ-9 Depression Total Score: 1 07/04/19 23 12:08 PM EDT documented as of this encounter Care Teams Press Clippings Cutter And Paster Relationship Specialty Start Date End Date Brandie Hicks PA-C PCP - General Family Medicine 06/12/22 06/03/24 Farrah Hemphill FNP [address] [place] [address] PCP - General Family Medicine 06/04/24 01/07/25 Terese Hunt DO [address] [place] [address] PCP - General Inspector Toys 01/08/25 documented as of this encounter
--- OUTSIDE RECORDS SUMMARY | 2025-02-10 10:45 | XMS_ITS | Encounter Summary ---
Author Organization [facility] Address [address] [facility] [address] [place] [address] Phone Care Team Providers Care Issuing Operator Name Role Phone Adenike Lainez NP Primary Care Provider Farrah Hemphill MAINTAINABILITY ENGINEER Unavailable + Farrah Hemphill CNP Primary Care Prov ider Encounter Details Date Type Department Care Team (Latest Contact Info) Description 12/25/2022 Transcribe Orders Virtual Department [address] [place] [address] Brandie Hicks PA [address] [place] [address]. [place] [address] [email or web address] Gallbladder polyp (Primary Dx) [...] 6 months to reassess the polyp. Idalmis et al. Management of Incidentally Detected Gallbladder Polyps: Society of Radiologists in Ultrasound Consensus Conference Recommendations. Radiology. 2021;305(2):277-289. doi: 10.1148/radiol.891601. PMID: 17229754. Narrative 01/30/2023 6:24 AM EST US ABDOMEN [...] Radiologists in Ultrasound Consensus ConferenceRecommendations. Radiology. 2021;305(2):277-289. doi:10.1148/radiol.173482. PMID: 65888642. us Brandie SAVAGE IMG US ABDOMEN Final Result documented in this encounter Visit Diagnoses Diagnosis Gallbladder polyp- Primary Cholesterolosis of gallbladder Gallbladder polyp Cholesterolosis of gallbladder documented in this encounter Care Teams Issuing Operator Relationship Specialty Start Date End Date Adenike Lainez NP [address] [place] [address] [email or web address] PCP - General Family Medicine 03/29/18 10/26/24 Farrah Hemphill CNP [address] [place] [address] PCP - General Nurse Practitioner 10/27/24 Farrah Hemphill CNP [address] [place] [address] Nurse Practitioner 07/14/24 documented as of this encounter Additional Source Comments The information contained in this document represents components of the legal health record. It is not the complete legal health record.[facility]
--- OUTSIDE RECORDS SUMMARY | 2025-02-10 10:45 | XMS_ITS | Encounter Summary ---
Author Organization [employer] Address [address] [place] [address] Care Team Providers Care Polygraph Examiner Name Role Phone Brandie Hicks PA-C Primary Care Provider Farrah Ryan Primary Care Provider [phone] Terese Hunt DO Primary Care Provider [phone] Encounter Details Date Type Department Care Team [...] Description 02/23/2025 10:00 AM EST Office Visit [facility] MEDICAL [address] [place] [address] Terese Hunt DO [address] [place] [address] 05/06/2025 12:00 PM EST Office Visit [facility] DENTAL [address] [place] [address] Beth Franco [address] [place] [address] documented as of this encounter Visit Diagnoses Not on filedocumented in this encounter Care Teams Polygraph Examiner Relationship Specialty Start Date End Date Brandie Hicks PA-C PCP - General Family Medicine 06/12/22 06/03/24 Farrah Hemphill FNP [address] [place] [address] PCP - General Family Medicine 06/04/24 01/07/25 Terese Hunt DO [address] [place] [address] PCP - General Contract Forester 01/08/25 documented as of this encounter
--- OUTSIDE RECORDS SUMMARY | 2025-02-10 10:45 | XMS_ITS | Clinical Summary ---
Author Organization [facility] Address [address] [facility] [address] [place] [address] Phone Care Team Providers Care Information Technology Security Manager Name Role Phone Farrah Hemphill CNP Unavailable + Farrah Hemphill [facility] Primary Care Prov ider Allergies Active Allergy Reactions Criticality Noted Date Comments Avocado 07/14/2022 Calcitonin ([place]) Diarrhea 05/24/2009 Other Reaction(s): Nausea, Vomiting Sertraline [...] Encounters Date Type Department Care Team Description 01/16/2025 10:00 AM EST Office Visit [facility] Orthopedics & Sports Medicine [address] [place] [address] Marcella Womack MD Rotator cuff arthropathy of left shoulder (Primary Dx); Primary localized osteoarthrosis of left shoulder region 12/08/2024 10:46 AM EDT - 12/08/2024 11:59 PM EDT Hospital Encounter [facility], [address] [address] Farrah Hemphill CNP Discharge Disposition: Home or Self Care from [...] 10/27/2024 9:45 PM EDT Plan of Treatment Health Maintenance Due Date Last Done Comments BLOOD PRESSURE 1945 DEPRESSION SCREENING 1955 LIPID PANEL 01/25/2024 01/24/2023, 05/0 08/2022, 06/12/2022 COVID-19 VACCINE ( season) 2025 12/05/2024, 01/10/2024, 12/22/2022, Additional history exists CREATININE LEVEL 10/30/2025 10/30/2024, , 10/28/2024, Additional history exists POTASSIUM LEVEL 10/30/2025 10/30/2024, 10/11, 10/28/2024, Additional history exists Adult Td,Tdap Booster 08/30/2026 08/30/2016 PNEUMOCOCCAL VACCINES (50+ years) Completed 12/31/2014, 06/09/2009 ZOSTER VACCINES Completed 12/03/2017, 08/12/2017 RSV VACCINE Completed 03/21/2023 OSTEOPOROSIS SCREENING INITIAL (ONE-TIME) Completed 07/17/2024, 07/17/2024 INFLUENZA VACCINE Completed 01/01/2025, , 11/30/2022, Additional history exists HEPATITIS A VACCINES Aged Out No long [...] this topic Medical Devices Implanted Type Area Flour Tester Device Identifier Shelf Expiration Date Model / Serial / Lot Hip 36mm 3.0 G7 [place] Modular Type 1 [employer] Plus - [id number] Implanted:Qty: 1 on 09/23/2018 by Kyrie Lewis MD at [facility] STANDARD Left: Hip [employer] 09/03/2028 [id number] / / [id number] Acetabular Shell 52mm Size E G7 Porous Plasma [place] [employer] Hole - [id number] Implanted:Qty: 1 on 09/23/2018 by Kyrie Lewis MD at [facility] Left: Hip [employer] 04/27/2028 [id number] / / [id number] Screw Bone 6.5x25mm Hip Acetabular Dome G7 Low Profile - [id number] Implanted:Qty: 1 on 09/23/2018 by Kyrie Lewis MD at [facility] Left: Hip [employer] 11/25/2025 [id number] / / [id number] Acetabular Liner 36mm 10deg Size E G7 Polyethylene Arcomxl - [id number] Implanted:Qty: 1 on 09/23/2018 by Kyrie Lewis MD at [facility] Left: Hip [employer]SHA / DIV OF [employer] SQUIBB 11/20/2022 [id number] / / [id number] Hip Stem [id number] 135deg Echo Bimetric Revision Titanium Porous Reduced Proximalimal Profile Neck - [id number] Implanted:Qty: 1 on 09/23/2018 by Kyrie Lewis MD at [facility] Left: Hip [employer] 04/16/2028 [id number] / / [id number] Procedures Procedure Name Priority Date/Time Associated Diagnosis Comments US KIDNEYS Routine 12/08/2024 12:06 PM EDT Complex renal cyst COMPREHENSIVE METABOLIC PANEL (CMP) Routine 10/30/2024 5:23 AM EDT BD DXA SPINE AND HIP [...] clinician's provided indication for this examination in [facility]: Outside Radiology Order; complex renal cyst TECHNIQUE: [...] clinician's provided indication for this examination in [facility]:Outside Radiology Order; complex renal cyst TECHNIQUE: Kidney [...] but are similar to prior study Farrah Hnak Joby [facility] US RENAL Fi nal Result * (ABNORMAL) Comprehensive metabolic panel (10/30/2024 5:23 AM EDT) SODIUM 141 133 - 146 mmol/L [facility] POTASSIUM 3.9 3.3 - 5.1 mmol/L [facility] CHLORIDE 105 96 - 108 mmol/L [facility] CO2 23 21 - 35 mmol/L [facility] BUN 19 6 - 19 mg/dL [facility] CREATININE 0.80 0.5 - 1.5 mg/dL [facility] GLUCOSE 121(H) 70 - 99 mg/dL [facility] ALBUMIN 3.4(L) 3.9 - 4.8 g/dL [facility] TOTAL PROTEIN 6.2(L) 6.5 - 8.0 g/dL [facility] CALCIUM 9.0 8.4 - 10.3 mg/dL [facility] ALKALINE PHOSPHATASE 172(H) 39 - 117 U/L [facility] TOTAL BILIRUBIN 0.5 0.0 - 1.2 mg/dL [facility] AST 43(H) 0 - 37 U/L [facility] ALT 39 0 - 40 U/L [facility] GLOBULIN 2.8 1 - 4.8 g/dL [facility] EGFR 74 >59 mL/min/1.7 3m2 [facility] Comment:Estimated glomerular filtration rate calculated using the CKD-EPI refit equation. ANION GAP 17 10 - 20 mmol/L [facility] Blood 10/30/2024 5:23 AM EDT 10/30/2024 5:55 AM EDT Corrina Lucas DO, MPH LAB BLOOD BKR O RDERABLES Final Result [facility] [address] [place] [address] * BD DXA SPINE AND HIP WITH FOREARM (07/17/2024 1:37 PM EDT) Anatomical Region Laterality Modality Bone Density Bone Density 07/17/2024 1:23 PM EDT Impressions 07/18/2024 1:31 PM EDT Interpretation: Osteopenia. Narrative 07/18/2024 1:31 PM EDT Referred By: JOY CORDON Indications: Postmenopausal Scanner: HoloImageProtect A with serial# of [id number] located at [facility] Bone Density Scan (DXA) 07/17/24 [...] -2.5), or Osteoporosis (T-score <= -2.5). At [facility], T-scores are compared to peak [...] Referred By: JOY CORDON Indications: Postmenopausal Scanner: ChatStat A with serial# of [id number] located at [facility] Bone Density Scan (DXA) 07/17/24 Details of prior DXA scans are available by clicking View Full Report BMD T- Z- Skeletal Site gm/cm2 score score BMD Change Since Prior Scan ------ ----- PA Spine (L1 L2) 1.067 0.80 3.30 0.029 (2.8%)* since08/13/2008 Total Hip (Right) 0.653 -2.40 -0.30 -0.171 (-20.8%)* since08/13/2008 Femoral Neck (Right) 0.612 -2.10 0.20 -0.162 (-20.9%)* since08/13/2008/ Radius (Left) 0.571 -1.90 1.30 N/A ------ [...] -2.5), or Osteoporosis (T-score <= -2.5). At [facility], T-scores are compared to peak [...] results. IMPRESSION: Interpretation: Osteopenia. us Joy [facility] Annabelle galvin Result * (ABNORMAL) Lipid panel (07/15/2022 6:41 AM EDT) HDL 36 mg/dL [facility] Comment: Interpretation <40 mg/dL: Low HDL cholesterol (major risk factor for CHD) Greater than or equal to 60 mg/dL: High HDL cholesterol ( negative risk factor for CHD) HDL - cholesterol is affected by a number of factors, e.g. smoking, excerise, hormones, sex and age. CHOLESTEROL 101 0 - 240 mg/dL [facility] TRIGLYCERIDES 138 30 - 160 mg/dL [facility] LDL 37(L) 50 - 129 mg/dL [facility] Comment: LDL levels in terms of risk for coronary heart disease: <100 mg/dL: Optimal 100-129 mg/dL: Near or above optimal 130-159 mg/dL: Borderline high 160-189 mg/dL: High >190 mg/dL: Very High CARDIAC RISK RATIO 2.8(L) 3.3 - 4.4 C [facility] Blood 07/15/2022 6:41 AM EDT 07/15/2022 7:14 AM EDT us Tyler Knowles DO, MPH LAB BLOOD BKR ORDERABLES F inal Result [address] [address] from Last 3 Months or Most Recently Relevant to Health Maintenance Insurance MEDICARE PART A & B [facility] MEDICARE REPLACEMENT MEDICARE PART A & B MEDICARE REPLACEMENT MEDICARE PART A & B MEDICARE PART A & B MEDICARE PART A & B MEDICARE REPLACEMENT MEDICARE PART A & B MEDICARE PART A & B Member Subscriber Plan / Payer (Ef fective 2008-Present) Name:Yanira Samuels Member ID:[id number] Relation to Subscriber:Self Name:Yanira Samuels Subscriber ID:[id number] Payer ID:[id number] Group ID:Not on file Type:Medicare Address: [place] [address] MEDICARE REPLACEMENT MEDICARE PART A & B MEDICARE REPLACEMENT MEDICARE PART A & B [facility] MEDICARE REPLACEMENT Advance Directives For more information, please contact: [phone] (9AM - 5PM [facility], Sunday-Sunday) Documents on File Type Date Recorded Patient Global Account Manager Expl anation Healthcare Proxy 09/26/2018 12:30 PM [...] 11:00 AM 09/23/2018 5:59 PM Care Teams Information Technology Security Manager Relationship Specialty Start Date End Date Farrah Hemphill CNP [address] [place] [address] PCP - General Nurse Practitioner 10/27/24 Farrah Hemphill CNP [address] [place] [address] Nurse Practitioner 07/14/24 Additional Source Comments The information contained in this document represents components of the legal health record. It is not the complete legal health record.[facility]
--- OUTSIDE RECORDS SUMMARY | 2025-02-10 10:46 | XMS_ITS | Encounter Summary ---
Author Organization [employer] Address [address] [place] [address] 7[address] [place] [address] Care Team Providers Care Partition Setter Name Role Phone Farrah Hemphill Primary Care Provider [phone] Terese Hunt DO Primary Care Provider [phone] Encounter Details Date Type Department Care Team (Late st Contact Info) Description 12/30/2024 Orders Only [facility] Information Management [address] [place] [address] Farrah Hemphill FNP [address] [place] [address] Social History Tobacco Use Types Packs/Day Years [...] 10:00 AM EST Office Visit [facility] MEDICAL [address] [place] [address] Terese Hunt DO [address] [place] [address] 05/06/2025 12:00 PM EST Office Visit [facility] DENTAL [address] [place] [address] Beth Franco [address] [place] [address] documented as of this encounter Procedures Procedure Name Priority Date/Time Associated Diagnosis Comments VASC US LOWER EXTREMITY ARTERIAL DUPLEX BILATERAL WITH ROSEMARY Routine 12/30/2024 12:26 PM EDT US RENAL COMPLETE Routine 12/30/2024 12:11 PM EDT documented in this encounter Results * VASC US Lower Extremity Arterial Duplex Bilateral With Rosemary (12/30/2024 12:26 PM EDT) Farrah Joby CHARGING PLUG PLACER CV VASCULAR PROCEDURES Fi nal Result * US Renal Complete (12/30/2024 12:11 PM EDT) Anatomical Region Laterality Modality Kidney Ultrasound Farrah Hemphill CHARGING PLUG PLACER IMG US PROCEDURES Final R esult documented in this encounter Visit Diagnoses Not on filedocumented in this encounter Additional Health Concerns Assessment Noted Time PHQ-9 Depression Total Score: 2 05/15/19 11:53 AM EST documented as of this encounter Care Teams Partition Setter Relationship Specialty Start Date End Date Farrah Hemphill FNP [address] [place] [address] PCP - General Family Medicine 06/04/24 01/07/25 Terese Hunt DO [address] [place] [address] PCP - General Yarn Rewinder 01/08/25 documented as of this encounter
--- OUTSIDE RECORDS SUMMARY | 2025-02-10 10:46 | XMS_ITS | Clinical Summary ---
Author Organization [employer] Address [address] [place] [address] [address] [place] [address] Care Team Providers Care Director Trust Name Role Phone Terese Hunt Primary Care Provider [phone] Allergies Active Allergy Reactions Criticality Noted Date Comments Avocado 07/14/2022 Calcitonin (Atl[place]) Diarrhea,Nausea,Vomiting Guaifenesin Diarrhea,Dizziness,Hives 03/12/2009 Sertraline 01/10/2015 Sulfa Antibiotics Hives,Itching 03/12/2000 Medications Multiple Vitamin (multivitamin) tablet Take 1 tablet by mouth Once per day. Active mupirocin (Bactroban) 2 % ointment 03/19/19 25 Active calcium 200 MG tablet Take 200 mg by mouth Once per day. Active fluorouracil (Efudex) 5 % cream Apply topically Once per day. 06/25/19 25 Active naproxen (Naprosyn) 250 MG tablet Take 500 mg by mouth if needed for mild pain. Active chlorthalidone (Hygroton) 25 MG tabletIndications :Primary hypertension Take 1 tablet (25 mg) by mouth in the morning. 90 tablet 3 08/13/19 25 Active amLODIPine (Norvasc) 5 MG tabletIndications :Primary hypertension Take 1 tablet (5 mg) by mouth in the morning. 90 tablet 3 09/11/19 25 Active atorvastatin (Lipitor) 20 MG tabletIndications :Mixed hyperlipidemia Take 1 tablet (20 mg) by mouth in the morning. 90 tablet 3 09/11/19 25 Active lisinopril 30 MG tabletIndications :Primary hypertension Take 1 tablet (30 mg) by mouth at bedtime for 360 doses. /90 days 90 tablet 3 11/18/19 25 026 Active escitalopram (Lexapro) 20 MG tabletIndications :Anxiety Take 1 tablet (20 mg) by mouth in the morning. 90 tablet 3 01/31/20 25 026 Active escitalopram (Lexapro) 20 MG tabletIndications :Anxiety Take 1 tablet (20 mg) by mouth in the morning. 90 tablet 10/30/19 25 025 Discontinued Active Problems Problem Noted Date Diagnosed Date [...] Encounters Date Type Department Care Team Description 01/29/2025 Refill [facility] [address] [place] [address] Aracelis Oneill MD Anxiety (Primary Dx) 12/30/2024 Orders Only [facility] [address] [place] [address] Farrah Hemphill FNP 12/08/2024 Telephone [facility] [address] [place] [address] Farrah Hemphill FNP injection site /red and itchy 12/08/2024 Results Follow-Up [address] [address] Farrah Hemphill FNP US Renal Complete 11/17/[address] [address] Farrah Hemphill FNP Primary hypertension 11/11/2024 10:00 AM EDT Office Visit [address] [address] Kerry Benson MD Cat bite, subsequent encounter (Primary Dx); Primary hypertension from Last 3 Months Immunizations Immunization Administration [...] 08/09/2024 8:18 AM EDT Plan of Treatment Upcoming Encounters Date Type Department Care Team (Late st Contact Info) Description 02/23/2025 10:00 AM EST Office Visit [facility] MEDICAL [address] [place] [address] Terese Hunt DO [address] [place] [address] 05/06/2025 12:00 PM EST Office Visit [facility] DENTAL [address] [place] [address] Beth Franco [address] [place] [address] Health Maintenance Due Date Last Done Comments DTaP/Tdap/Td Vaccines (1 - Tdap) 08/31/2016 08/30/2016 Dental Oral Exam 01/31/2025 07/30/2024, 02/2023, 02/09/2021, Additional history exists Dental Prophylaxis 01/31/2025 07/30/2024, 1 03/31/2023, 02/20/2023, Additional history exists Alcohol/Substance Use Screening 05/14/2025 05/14/2024 Depression Screening 05/14/2025 05/14/2024, 05/15/19 SDOH Screening 05/14/2025 05/14/2024 Diabetes: Hemoglobin A1C 05/30/2025 025, 08/02/2023, 07/15/2022, Additional history exists COVID-19 Vaccine ( season) 2025 12/05/2024, 01/10/2024, 12/22/2022, Additional history exists Dental X-Ray: Bitewings 07/31/2025 07/31/19 25, 01/30/2024, 10/07/2021, Additional history exists Tobacco Screening 08/09/2025 08/09/2024 Dental X-Ray: Full Mouth 08/01/2027 07/30/2024, 03/12 Lipid Panel 01/25/2028 01/24/2023, 06/12/2022 Pneumococcal Vaccine: 50+ Years Completed 12/31/2014, 06/09/2009 Zoster Vaccines Completed 12/03/2017, 08/12/2017 RSV Patients and Patients Aged 60 years or older Completed 03/21/2023 Influenza Vaccine Completed 01/01/2025, , 11/30/2022, Additional history exists HIB Vaccines Aged Out No longer eligi [...] PM EDT US RENAL COMPLETE Routine 12/30/2024 12: 11 PM EDT US RENAL COMPLETE Routine 12/08/2024 Complex renal cyst Full PROPHYLAXIS - ADULT Routine 07/30/2024 10:10 [...] Recently Relevant to Health Maintenance Results * VASC US Lower Extremity Arterial Duplex Bilateral With Rosemary (12/30/2024 12:26 PM EDT) Farrah QUINTANAP CV VASCULAR PROCEDURES Fi nal Result * US Renal Complete (12/30/2024 12:11 PM EDT) Only the most recent of2 resultswithin the time period is included. Anatomical Region Laterality Modality Kidney Ultrasound Farrah Hemphill GEM STONE CUTTER IMG US PROCEDURES Final R esult * (ABNORMAL) Hemoglobin A1c (05/30/2024 11:26 AM EDT) Hemoglobin A1c 6.6(H) 4.8 - 5.6 % [facility] 1 Comment: Prediabetes: 5.7 - 6.4 Diabetes: >6.4 Glycemic control for adults with diabetes: <7.0 Blood Venous blood specimen / Unknown 05/30/2024 11:26 AM EDT 05/30/2024 Narrative [facility] 1 - 05/31/2024 6:05 AM EDT Performed at: [address] [id number] Buttermaker Helper: Tania Lagos MD, Phone: [phone] Farrah Hemphill GEM ST[employer] CUTTER LAB BLOOD ORDERABLES Annabelle l Result Performing Organization Address City/[facility]/ZIP Co de Phone Number [facility] 1 * Lipid Panel, Standard (01/24/2023 8:42 AM EST) Cholesterol, Total 125 (<200) MG/DL [facility] Triglyceride (mg/dL) in Serum/Plasma 114 (<150) MG/DL [facility] HDL Cholesterol 41 (>39) MG/DL [facility] LDL Cholesterol, Calculated 61 (0-130) MG/DL [facility] Non HDL Chol. (LDL+VLDL) 84 (<160) MG/DL [facility] Comment: Testing performed or reported by [facility], a Service of [facility], [address] [place] [address] Lance Esposito MD, Atomic Spectroscopist [facility]# [id number] Blood Venous blood specimen / Unknown 01/24/2023 8:42 AM EST 01/24/2023 8:44 AM EST Brandie Hicks PA-C LAB BLOOD ORDERABLES Final Result Performing Organization Address [facility] de Phone Number [address] [address] from Last 3 Months or Most Recently Relevant to Health Maintenance Insurance MEDICARE [facility] MEDICARE REPLACEMENT GENERIC DENTAL Care Teams Director Trust Relationship Specialty Start Date End Date Terese Hunt DO [address] [place] [address] PCP - General Dry Cure Worker 01/08/25
--- OUTSIDE RECORDS SUMMARY | 2025-02-10 10:46 | XMS_ITS | Encounter Summary ---
Author Organization [facility] Address [address] [facility] [address] [place] [address] Phone Care Team Providers Care Mobile Nurse Name Role Phone Adenike Lainez NP Primary Care Provider Farrah Hemphill AERONAUTICAL PROJECT ENGINEER Unavailable + Farrah Hemphill CNP Primary Care Prov ider Encounter Details Date Type Department Care Team (Late st Contact Info) Description 09/19/2019 Transcribe Orders Virtual Department [address] [place] [address] Adenike Lainez, MARIXA [address] [place] [address] [email or web address] Encounter for screening laboratory testing [...] 9:35 AM EDT) Specimen Source NASOPHARYNGEAL SWAB (TRAY FILLER) [facility] COVID Testing Status Sent to [facility] Other 10/07/2019 9:35 AM EDT 10/07/2019 10:40 AM EDT Adenike Lainez TRAY FILLER LAB GENERAL ORDERABLES Final Result [facility] [address] [place] [address] documented in this encounter Visit Diagnoses Diagnosis Encounter for screening laboratory testing for COVID-19 virus- Primary documented in this encounter Care Teams Mobile Nurse Relationship Specialty Start Date End Date Adenike Lainez, MARIXA [address] [place] [address] [email or web address] PCP - General Family Medicine 03/29/18 10/26/24 Farrah Hemphill CNP [address] [place] [address] PCP - General Nurse Practitioner 10/27/24 Farrah Hemphill CNP [address] [place] [address] Nurse Practitioner 07/14/24 documented as of this encounter Additional Source Comments The information contained in this document represents components of the legal health record. It is not the complete legal health record.[facility]
--- OUTSIDE RECORDS SUMMARY | 2025-02-10 10:46 | XMS_ITS | Encounter Summary ---
Author Organization [employer] Address [address] [place] [address] [address] [place] [address] Care Team Providers Care Border Inspector Name Role Phone Farrah Hemphill Primary Care Provider [phone] Terese Hunt DO Primary Care Provider [phone] Encounter Details Date Type Department Care Team (Late st Contact Info) Description 12/08/2024 Results Follow-Up [facility] MEDICAL [address] [place] [address] Farrah Hemphill FNP [address] [place] [address] US Renal Complete Social History Tobacco Use [...] Description 02/23/2025 10:00 AM EST Office Visit [facility] MEDICAL [address] [place] [address] Terese Hunt DO [address] [place] [address] 05/06/2025 12:00 PM EST Office Visit [facility] DENTAL [address] [place] [address] Beth Franco [address] [place] [address] documented as of this encounter Visit Diagnoses Not on filedocumented in this encounter Additional Health Concerns Assessment Noted Time PHQ-9 Depression Total Score: 2 05/15/19 11:53 AM EST documented as of this encounter Care Teams Border Inspector Relationship Specialty Start Date End Date Farrah Hemphill FNP [address] [place] [address] PCP - General Family Medicine 06/04/24 01/07/25 Terese Hunt DO [address] [place] [address] PCP - General Inspector [employer] Castings 01/08/25 documented as of this encounter
== END 2025-02-10 10:15 | disposition home or self-care (01) ==
LOC: HO.HVS 09:43
PROVIDERS: PCP Nurse Practitioner Family; Visit Provider Surgery Vascular Surgery
DX: I73.9 Peripheral vascular disease, unspecified (principal)
CPT/HCPCS: 99213; G2211

== ENCOUNTER → 2025-02-10 09:42 | Outpatient (BNVA) | payer MEDICARE, SELFPAY | PROVIDERS: PCP Nurse Practitioner Family; Visit Provider Surgery Vascular Surgery | DX: I73.9 Peripheral vascular disease, unspecified (principal) | CPT/HCPCS: 99212 ==